=== PATIENT | male | born 1930 | race Caucasian/White ===

== ENCOUNTER 2017-01-15 07:28 | Outpatient (CLI) | payer MEDICARE, BC ==
[~2017-01-15] VITALS: Ht 177.8 cm; Wt 66.4 kg
--- NOTE | ~2017-01-15 | HEMODYNAMI ---
PATIENT:VERO ECHOLS MEDICAL RECORD: [id number] : 34 LOCATION:[facility] ADMISSION DATE: 01/15/17 Generatedon:01/15/201710:37 Patient name: VERO ECHOLS Patient #: [id number] SSN : : 1930 Date of study: 01/15/2017 Page: Of Hemodynamic Procedure Report Patient Data Patient Demographics Procedure consent was obtained First Name: VERO Gender: Male Last Name: KINZA : 1930 [facility] Initial: L Age: 86 year(s) Patient #: [id number] Race: Additional ID: [id number] Contact details Address: [address] [place] [address] State: [place] City: [facility] Zip code: [address] Past Medical History Allergies Allergen Reaction Date Comments Reported Other allergy 01/15/2017 Iodine, IV contrast Admission Admission Data Admission Date: 01/15/2017 Admission Time: 7:28 Admit Source: Other Height (in.): 70 BSA: 1.83 (m2) Height (cm.): 177.8 BMI: 20.95 (kg/m2) Weight (lbs.): 146 Weight (kg.): 66.22 Lab Results Lab Result Date: 01/15/2017 Lab Result Time: 8:00 Biochemistry Name Units Result Min Max BUN mg/dl 25 --(----)-* 7 18 Creatinine mg/dl 1.1 --(--*-)-- 0.6 1.3 CBC Name Units Result Min Max Hematocrit % 38.7 *-(----)-- 42 54 Hemoglobin g/dl 13.2 -*(----)-- 13.5 17.5 Procedure Procedure Types Cath Procedure Miscellaneous Procedures Moderate Sedation up to 30 minutes Peripheral Cath Diagnostic Procedure Cath Peripheral Xinpe-Ukxeiiu-Rig-Off Peripheral vascular Intervention Stent Stent-Fem/Popw/plasty Procedure Description Procedure Date Procedure Date: 01/15/2017 Procedure Start Time: 10:18 Procedure Staff Name Function Isael Santiago MD Performing Physician Debbie Edmond RT Scrub Amandeep Herman RN Nurse Oliver Justin RT Monitor Procedure Data Cath Procedure Fluoroscopy Diagnostic fluoroscopy Total fluoroscopy Time: 4 time: 4 min min Diagnostic fluoroscopy Total fluoroscopy dose: 71 dose: 71 mGy mGy Contrast Material Contrast Material Type Amount (ml) Isovue 300 82 Entry Location Entry Primary Successful Side Size Upsize 1 Upsize Entry Closure Tabor ccessful Closure Location (Fr) (Fr) 2 (Fr) Remarks Device Remarks Femoral Left 5 Fr 6 Fr 6 Fr Exoseal artery Mid-Length Short Estimated blood loss: 10 ml Diagnostic catheters Device Type Used For End Catheter Placement Cordis Tempo 5Fr UF Procedure catheter Procedure Complications No complications Procedure Medications Medication Administration Route Dosage Oxygen NC 2 l/min Heparin Flush Bag added to field 2 bags (1000units/500ml NS) 0.9% NaCl I.V. 100 ml/hr Fentanyl I.V. 50 mcg Versed I.V. 1 mg Fentanyl I.V. 50 mcg Versed I.V. 1 mg Heparin Bolus I.V. 4000 units Plavix P.O. 600 mg Hemodynamics Rest BSA: 1.83 (m2) HGB: 13.2 (g/dl) O2 Consumption: Estimated: 225.1 (ml/min) O2 Con sumption indexed: Estimated:123.01 (ml/min/m) Heart Rate: 95 (bpm) Snapshots Pre Cath Intra NCS Post Cath Vital Signs Time Heart Resp SPO2 etCO2 DN4blja NIBP (mmHg) Rhythm Pain Sedatio n Rate (ipm) (%) (mmHg) (mmHg) Status Level (bpm) 9:55:23 96 20 97 0 0 170/100(140) NSR 0 (11) 10(A) , No pain 9:59:41 96 19 96 0 0 170/96(132) NSR 0 (11) 10(A) , No pain 10:03:57 97 20 96 0 0 171/98(136) NSR 0 (11) 10(A) , No pain 10:08:11 94 17 98 0 0 162/92(123) NSR 0 (11) 10(A) , No pain 10:12:27 95 19 98 0 0 159/92(125) NSR 0 (11) 10(A) , No pain 10:16:44 94 18 99 0 0 150/80(113) NSR 0 (11) 9(A) , No pain 10:21:01 97 16 98 0 0 144/76(105) NSR 0 (11) 9(A) , No pain 10:25:15 96 17 98 0 0 136/73(105) NSR 0 (11) 9(A) , No pain 10:29:26 96 18 98 0 0 132/73(99) NSR 0 (11) 9(A) , No pain 10:33:36 97 9 98 0 0 135/76(106) NSR 0 (11) 9(A) , No pain Medications Time Medication Route Dose Verified Delivered Reason Notes Effectiveness by by 9:59:27 Oxygen NC 2 Amandeep Amandeep Per physician l/min Virgil Herman RN RN 9:59:38 Heparin Flush added 2 Amandeep Amandeep used for Bag to bags Virgil Herman RN procedure (1000units/500ml field RN NS) 9:59:48 0.9% NaCl I.V. 100 Amandeep Amandeep Per physician ml/hr Virgil Herman RN RN 10:14:30 Fentanyl I.V. 50 Amandeep Amandeep for sedation mcg Virgil Herman RN RN 10:14:37 Versed I.V. 1 mg Amandeep Amandeep for sedation Virgil Herman RN RN 10:17:32 Fentanyl I.V. 50 Amandeep Amandeep for sedation mcg Virgil Herman RN RN 10:17:38 Versed I.V. 1 mg Amandeep Amandeep for sedation Virgil Herman RN RN 10:21:31 Heparin Bolus I.V. 4000 Amandeep Amandeep for units Virgil Herman RN anticoagulation RN 10:31:37 Plavix P.O. 600 Amandeep Bernstein for mg Virgil Herman RN antiplatelet RN therapy Procedure Log Time Note 9:01:01 Admit Source: Other 9:02:14 Lab Result : Creatinine 1.1 mg/dl 9:02:14 Lab Result : Hemoglobin 13.2 g/dl 9:02:14 Lab Result : BUN 25 mg/dl 9:02:14 Lab Result : Hematocrit 38.7 % 9:30:55 Amandeep Herman RN sent for patient. Start room use. 9:39:15 Time tracking: Regular hours 9:39:19 Plan of Care:Hemodynamics will remain stable., Cardiac rhythm will remain stable., Comfort level will be maintained., Respiratory function will remain adequate., Patient/ family verbilizes understanding of procedure., Procedure tolerated without complication., Recovers from procedure without complications.. 9:43:05 Patient received from Pre/Post Procedure Room to CCL 1 Alert and oriented. Tansferred to table in Supine position. 9:43:07 Warm blankets applied, and kaushik hugger turned on for patient comfort. 9:43:07 Correct patient and procedure confirmed by team. 9:43:08 Signed procedure consent form obtained from patient. 9:43:09 ECG and BP/O2 sat monitors applied to patient. 9:43:10 Full Disclosure recording started 9:54:17 Vital chart was started 9:54:22 Rhythm: sinus rhythm 9:59:27 Oxygen 2 l/min NC was administered by Amandeep Herman RN; Per physician; 9:59:38 Heparin Flush Bag (1000units/500ml NS) 2 bags added to field was administered by Amandeep Herman RN; used for procedure; 9:59:48 0.9% NaCl 100 ml/hr I.V. was administered by Amandeep Herman RN; Per physician; 10:05:30 H&P Date Dictated: 12/24/2016 Within 30 days and on chart., H&P Addendum completed by physician on day of procedure. (MUST COMPLETE FOR ALL OUTPATIENTS). 10:05:31 Pre-procedure instructions explained to patient. 10:05:31 Pre-op teaching completed and patient verbalized understanding. 10:05:32 Family in waiting room. 10:05:33 Patient NPO since Midnight. 10:05:49 Patient allergic to Other allergyIodine, IV contrast 10:05:51 Is the patient allergic to Iodine/contrast media? Yes. 10:05:52 Was the patient premedicated? Yes 10:05:53 Is patient on blood thinner?No 10:05:54 Patient diabetic? Yes. 10:05:56 If diabetic: On Metformin? Yes 10:06:02 If on Metformin: Last Dose? 01/14/2017 10:06:07 Previous problem with sedation/anesthesia? No ? 10:06:08 Snore? Yes 10:06:10 Sleep apnea? No 10:06:11 Deviated septum? No 10:06:12 Opens mouth fully? Yes 10:06:12 Sticks out tongue? Yes 10:06:14 Airway obstruction? No ? 10:06:20 Dentures? Yes out 10:06:23 Pre procedure: right dorsailis pedis pulse 2+ Normal; easily identifiable; not easily obliterated 10:06:26 Pre procedure: left dorsailis pedis pulse 1+ Palpable, but thready & weak; easily obliterated 10:06:30 Patient pain scale 0/10 ?. 10:06:36 IV patent on arrival in left forearm with 0.9% NaCl at [facility]. 10:06:38 Lab results completed and on chart. 10:06:40 Bilateral groins area was prepped with chlora-prep and draped in sterile fashion 10:06:41 Alarms reviewed by R. N. 10:06:41 Sharps counted by scrub and verified by R.N. 10:06:45 Tegaderm 4 x 4 opened to sterile field. 10:06:46 Acist Manifold opened to sterile field. 10:06:47 Acist Hand Control opened to sterile field. 10:06:48 Acist Syringe opened to sterile field. 10:06:48 Bag Decanter opened to sterile field. 10:06:49 Medline Cath Pack opened to sterile field. 10:06:49 Terumo 5Fr [place] Sheath opened to sterile field. 10:06:50 St Dez 260cm J .035 wire opened to sterile field. 10:07:17 Patient Height : 70 cm 10:07:22 Patient Weight : 146 kg 10:08:11 Baseline sample Acquired. 10:08:18 Rhythm: sinus rhythm 10:12:13 Physician arrived 10:12:14 --------ALL STOP TIME OUT------ 10:12:14 Final Timeout: patient, procedure, and site verified with staff and physician. All members of the team are in agreement. 10:12:16 Bilateral groins site verified by team. 10:12:18 Physical assessment completed. ASA score P 2 - A patient with mild systemic disease as per Isael Santiago MD. 10:12:21 Sedation plan: IV Moderate Sedation Versed, Fentanyl 10:12:53 Zero performed for pressure channel P1 10:14:30 Fentanyl 50 mcg I.V. was administered by Amandeep Herman RN; for sedation; 10:14:37 Versed 1 mg I.V. was administered by Amandeep Herman RN; for sedation; 10:17:32 Fentanyl 50 mcg I.V. was administered by Amandeep Herman RN; for sedation; 10:17:38 Versed 1 mg I.V. was administered by Amandeep Herman RN; for sedation; 10:17:55 Procedure started. 10:18:01 Local anesthetic to left femerol artery with Lidocaine 2% by Isael Santiago MD.INITIAL ACCESS ONLY 10:18:09 A 5 Fr sheath was inserted into the Left Femoral artery 10:18:53 A RadLogics Tempo 5Fr UF catheter was advanced over the wire and used for Procedure. 10:18:55 Abdominal angiogram w/ runoff was performed. 10:21:04 Left leg runoff performed. 10:21:10 Right leg runoff performed. 10:21:31 Heparin Bolus 4000 units I.V. was administered by Amandeep Herman RN; for anticoagulation; 10:22:07 Terumo 6Fr [place] Destination Sheath opened to sterile field. 10:22:08 Cook ROADRUNNER FIRM 260CM glide wire opened to sterile field. 10:22:08 Terumo 6Fr [place] Sheath opened to sterile field. 10:22:14 Merit BasixCompak Inflation Kit opened to sterile field. 10:22:36 glide wire advanced. 10:22:46 glide wire advanced around the horn 10:22:56 Catheter removed. 10:23:05 Sheath upsized to a 6 Fr Mid-Length. 10:23:20 long sheath advanced around the horn. 10:23:51 Terumo TORQUE DEVICE PLASTIC .038 opened to sterile field. 10:24:19 Wire removed. 10:24:26 Ripon Sci Choice PT Extra Support J 300cm .014 gu opened to sterile field. 10:24:35 choice PT wire advanced. 10:24:37 Wire advanced across lesion. 10:26:32 Inflation number: 1 A Cordis Powerflex Pro 6.0 X 20 X 135 balloon was prepped and advanced across the Mid Popliteal, Right, then inflated to 5 MARILIA for 0:10 (min:sec). 10:26:35 Balloon removed over the wire. 10:27:58 Cordis SMART 6 X 20 X 120 stent was deployed across Mid Popliteal, Right . 10:28:21 Stent catheter was removed intact over wire. 10:28:22 Wire removed. 10::49 Sheath upsized to a 6 Fr Short. 10:28:56 Cordis 6Fr Exoseal opened to sterile field. 10:29:03 Sheath removed intact; hemostasis achieved with Exoseal to the Left Femoral artery. 10:29:26 Procedure ended.(Physican Out) 10:31:37 Plavix 600 mg P.O. was administered by Amandeep Herman RN; for antiplatelet therapy; 10:32:51 Fluoroscopy time 04.00 minutes. 10:33:00 Fluoroscopy dose: 71 mGy 10:33:00 Flurop Dose total: 71 10:33:10 Contrast amount:Isovue 300 82ml. 10:33:11 Sharps counted by scrub and verified by R.N. 10:33:16 Insertion/operative site no bleeding no hematoma. 10:33:21 Post-op/insertion site Left Femoral artery dressed using a 4 x 4 and Tegaderm. 10:33:26 Post left femerol artery:stable, soft, clean and dry 10:33:29 Post Procedure Pulses reassessed and unchanged 10:33:32 Post-procedure physical assessment completed. ASA score P 2 - A patient with mild systemic disease as per Isael Santiago MD. 10:33:35 Post procedure rhythm: unchanged. 10:33:38 Estimated blood loss: 10 ml 10:33:40 Post procedure instruction explained to patient.Patient verbalizes understanding. 10:33:40 Patient needs reinforcement of post procedure teaching. 10:33:41 Procedure and supply charges have been captured, reviewed, submitted and are correct. 10:34:37 Procedure type changed to Cath procedure, Miscellaneous Procedures, Moderate Sedation up to 30 minutes, Peripheral Cath Diagnostic Procedure, Cath Peripheral, Edicd-Dczytqj-Fcf-Off, Peripheral vascular Intervention, Stent, Stent-Fem/Popw/plasty 10:34:39 Procedure Complication : No complications 10:34:43 Vital chart was stopped 10:34:47 Report given to Pre/Post Procedure Room. 10:34:49 Patient transfered to Pre/Post Procedure Room with Stretcher. 10:35:43 End room use (Document Last) Intervention Summary Intervention Notes Time ActionType Lesion and Equipment Action# Pressure Duration Attributes Used 10::32 Inflate Mid Cordis 1 5 00:10 balloon Popliteal, Powerflex Right Pro 6.0 X 20 X 135 balloon 10:27:58 Deploy self Mid Cordis 1 expanding Popliteal, SMART 6 X stent Right 20 X 120 stent Device Usage Item Name Manufacture Quantity Catalog Number Hospital Part Current Minim al Lot# / Charge Number Stock Stock Serial# Code Tegaderm 4 3M 1 [id number] 036011 [id number] 5 x 4 Acist Acist 1 14792 952571 946803 464361 5 Manifold Medical Systems Inc Acist Hand Acist 1 53791 781574 707346 828620 5 Control Medical Systems Inc Acist Acist 1 08384 635817 587692 266063 20 Syringe Medical Systems Inc Bag Microtek 1 2002S 596994 24463 270679 5 3FLOZ. Medline Cardinal 1 [id number] 422485 39467 702720 5 Cath Pack Health Terumo 5Fr Terumo 1 IVR280 130258 643310 143376 [address] Dez 1 120517 078648 577429 836656 30 260cm J .035 wire Cordis Cardinal 1 [id number] 193518 277346 174499 10 Tempo 5Fr Health UF catheter Terumo 6Fr Terumo 1 RSR01 191705 06976 582627 5 [place] Destination Sheath [facility] 1 C07165 530599 517334 5 ROADRUNNER FIRM 260CM glide wire Terumo 6Fr Terumo 1 CPC722 069148 238869 814863 40 [place] Sheath Merit Merit 1 WV0082 357863 119827 590168 15 BasixCompak Medical Inflation Kit Terumo Ripon 1 TD01 384428 949658 459188 5 TORQUE Scientific DEVICE PLASTIC .038 Ripon Sci Ripon 1 [id number] 993921 070417 775312 5 Choice PT Scientific Extra Support J 300cm .014 gu Cordis Cardinal 1 [id number] 045932 065665 077304 5 Powerflex Health Pro 6.0 X 20 X 135 balloon Cordis Cardinal 1 [id number] 712512 478605 0 SMART 6 X Health 20 X 120 stent Cordis 6Fr Cardinal 1 EX600 946760 208713 564872 10 [facility] Signature Audit Ida Stage Time Signature Unsigned Intra-Procedure 01/15/2017 Oliver Justin 10:37:16 AM RT(R) Signatures Monitor : Oliver Justin RT Signature : Date : Time : [place] [id number] [facility] [place] [address]
[2017-01-15] MEDS ORDERED: GEMFIBROZIL600 MG PO (07:47)
[2017-01-15] MEDS ORDERED: PROPAFENONE HC150 MG PO (07:47)
[2017-01-15] MEDS ORDERED: ZOCOR40 MG PO (07:48)
[2017-01-15] MEDS ORDERED: PREVACID30 MG PO (07:48)
[2017-01-15] MEDS ORDERED: GLUCOPHAGE500 MG PO (07:49)
[2017-01-15] MEDS ORDERED: CARDIZEM CD120 MG PO (07:50)
[2017-01-15] MEDS ORDERED: PINDOLOL10 MG PO (07:51)
[2017-01-15] MEDS ORDERED: ZOFRAN4 MG PO (07:52)
[2017-01-15] MEDS ORDERED: NITROSTAT0.4 MG SL (07:53)
[2017-01-15 08:02] VITALS: BP 173/79; Ht 177.8 cm; Wt 66.4 kg
[2017-01-15 08:11] LABS: BASOPHILS 0.7 % (0-2); EOSINOPHILS 0 % (0-7); HEMATOCRIT 38.7 % (42.0-54.0); HEMOGLOBIN 13.2 g/dL (13.5-17.5); IMMATURE GRANULOCYTES 9.9 % (0-5); LYMPHOCYTES 32.2 % (15-50); MCHC 34.1 g/dL (31.0-37.0); MEAN PLATELET VOLUME 10.7 fL (7.4-10.4); MONOCYTES 7.9 % (2-11); NEUTROPHILS 49.3 % (40-80); RDW 13.3 % (11.5-14.5)
[2017-01-15 08:15] LABS: PLATELET COUNT 215 10x3/uL (130-400)
[2017-01-15 08:19] LABS: WBC 1.5 10x3/uL (4.8-10.8)
[2017-01-15 08:25] LABS: CALCIUM 9.6 mg/dL (8.5-10.1); CARBON DIOXIDE 25.8 mmol/L (21.0-32.0); CREATININE - SERUM 1.1 mg/dL (0.6-1.3); POTASSIUM - SERUM 4.8 mmol/L (3.5-5.1)
[2017-01-15] MEDS ORDERED: BAYER CHEWABLE81 MG PO (10:55)
[2017-01-15] MEDS ORDERED: PLAVIX75 MG PO (10:55)
--- NOTE | 2017-01-17 16:36 | OP ---
PATIENT NAME: VERO ECHOLS MEDICAL RECORD: [id number] :34 LOCATION:D.CAT ADMISSION DATE: SURGEON: EVELYN PAINTER MD DATE OF OPERATION: 01/15/2017 PROCEDURES: 1. Stent placement, popliteal right. 2. SUPERVISOR MAINTENANCE AND CUSTODIANS, popliteal right. 3. Aortofemoral runoff. 4. Abdominal aortography. INDICATIONS: Claudication and peripheral vascular disease. PROCEDURE IN DETAIL: After informed consent was obtained and after a detailed explanation of risks, benefits as well as alternative therapies, the patient elected to proceed with angiogram and angioplasty. The left femoral area was prepped and draped in normal sterile fashion. The left femoral artery was cannulated via modified Seldinger technique with placement of 6-Wolof bauwma-qkp-tvqt sheath. All catheters exchanged through this sheath. FINDINGS: The abdominal aortography was performed. The catheter was pulled down for aortofemoral runoff. Abdominal aortography reveals no significant abdominal aortic disease. There is 80% renal artery stenosis on the left. No significant renal artery stenosis on the right. LEFT LEG: A. Iliac: The common internal and external iliacs have mild irregularities, but no flow-limiting stenosis. B. Femoral system: The common and deep femoral are widely patent. Superficial femoral has area of 90% stenosis in the distal aspect, otherwise only mild irregularities. C. Popliteal and infrapopliteal vessels are patent giving 3-vessel runoff to the foot, although diffusely diseased. RIGHT LEG: A. Iliac: The common internal and external iliacs have mild irregularities, but no flow-limiting stenosis. B. Femoral system: The common superficial and deep femoral have ldsb-zp-xyduhzah irregularities, but no flow-limiting stenosis. C. Popliteal and infrapopliteal vessels. The popliteal vessel has an 80+ percent stenosis in the mid distal aspect of this. Otherwise, there is 3-vessel runoff to the foot, although mildly diffusely diseased. SUPERVISOR MAINTENANCE AND CUSTODIANS STENT OF THE RIGHT POPLITEAL: Balloon used was 6 x 20 balloon, which yielded a suboptimal result with severe intimal dissection. Stenting was undertaken with a 6 x 20 Smart stent. Result was 0% residual stenosis. OVERALL IMPRESSION: Successful SUPERVISOR MAINTENA[employer]CE AND CUSTODIANS stent of the right popliteal going from 80% initial stenosis to 0% residual. PLAN: For SUPERVISOR MAINTENANCE AND CUSTODIANS stent of the left SFA in the near future. TRANSINT:[id number] Voice Confirmation ID: [id number] DOCUMENT ID: [id number] OPERATIVE REPORT [id number] VERO ECHOLS JEFFREY MD at 1636 CC: [id number] DICTATION DATE: 01/15/17 1034 BIN CLEANER: 01/15/17 [facility] DEP CLI 01/15/17 [place] [id number]
== END 2017-01-15 14:40 | disposition home or self-care (01) ==
LOC: D.CATH 07:28
PROVIDERS: Internal Medicine Interventional Cardiology
DX: I25.10 Atherosclerotic heart disease of native coronary artery without angina pectoris (principal); I70.213 Atherosclerosis of native arteries of extremities with intermittent claudication, bilateral legs; I48.0 Paroxysmal atrial fibrillation; I10 Essential (primary) hypertension; Z01.812 Encounter for preprocedural laboratory examination

== ENCOUNTER 2017-01-20 07:26 | Outpatient (CLI) | payer MEDICARE, BC ==
[~2017-01-20] VITALS: Ht 177.8 cm; Wt 66.4 kg
--- NOTE | ~2017-01-20 | HP ---
PATIENT: VERO ECHOLS MEDICAL RECORD: [id number] ACCOUNT: [id number] LOCATION:[facility] : 34 ADMISSION DATE: 01/20/17 HISTORY AND PHYSICAL EXAMINATION ADMITTING DIAGNOSES: 1. Claudication. 2. Peripheral vascular disease. 3. Recent percutaneous transluminal angioplasty stent, right popliteal with concomitant disease of the left superficial femoral artery. 4. Coronary artery disease. 5. Hypertension. 6. Hyperlipidemia. HISTORY OF PRESENT ILLNESS: Mr. Echols presents with claudication bilaterally, found to have bilateral significant disease, underwent SCHOOL GUARD stent of his popliteal right and is now admitted for left leg SFA transcatheter revascularization. PHYSICAL EXAMINATION: GENERAL APPEARANCE: Well-nourished, well-developed, appears stated age. Level of distress, comfortable. PSYCHIATRIC: Mental status, alert, normal affect. Orientation, oriented to time, place and person. EYES: Lids and conjunctiva, noninjected. No discharge, no pallor. ENT: Lips, teeth, gums, normal dentition. Oropharynx, no cyanosis, no pallor. NECK: Carotid arteries, bilateral normal upstroke, no bruits, no thrills. JUGULAR VEINS: No jugular venous pressure or distention. CERVICAL LYMPH NODES: Nontender, nonenlarged. THYROID: Not enlarged. Nontender. No nodules. LUNGS: Respiratory effort, unlabored. CHEST: Normal curvature. No thoracic deformity. No chest wall tenderness. Percussion, resonant. Auscultation, clear. No wheezes, no rales, no rhonchi. CARDIOVASCULAR: Precordial exam, nondisplaced. No heaves or pericardial thrills. Rate and rhythm, regular. Heart sounds, normal S1, normal S2. No S3, no gallop, no rub. Systolic murmur, not heard. Diastolic murmur, not heard. EXTREMITIES: No cyanosis, no edema. Peripheral pulses, full and equal in all extremities, except as noted. No bruits appreciated. ABDOMEN: Soft, nondistended. Normal aorta. No bruit. Nontender. No masses. Liver, nontender, no hepatomegaly. Spleen, nontender, no splenomegaly. MUSCULOSKELETAL: No joint tenderness. No joint swelling. No erythema. NEUROLOGICAL: Normal gait, normal strength, normal tone. SKIN: Warm and dry. REVIEW OF SYSTEMS: The patient reports easy bruising but reports no swollen glands. The patient reports no fever, no night sweats, no significant weight gain, no significant weight loss. No significant exercise tolerance. The patient reports no dry eyes, no irritation, no vision change. Patient reports no difficulty hearing and no ear pain. Patient reports no frequent nose bleeds or nose and sinus problems. Patient reports on arm pain on exertion. No shortness of breath while lying down. No history of heart murmur. Patient reports no cough, no wheezing or coughing up blood. Patient reports no abdominal pain, no vomiting. Normal appetite. No diarrhea and not vomiting blood. No nausea and no constipation. Patient reports no incontinence. No difficulty urinating. No hematuria. No increased frequency. Patient reports HISTORY AND PHYSICAL [id number] VERO ECHOLS no muscle aches. No weakness, no arthralgias, no back pain. No swelling of the extremities. Patient reports no abnormal mole, no jaundice, no rashes. Reports no loss of consciousness. No weakness and no numbness. No seizures, dizziness, or headaches. The patient reports no depression, no sleep disturbance, feeling safe in a relationship and no alcohol abuse. Patient reports on fatigue. Reports no runny nose or sinus pressure. No itching, no hives, and no frequent sneezing. OVERALL IMPRESSION: Claudication, left leg; disease of the superficial femoral artery. He is amenable to transcatheter revascularization. We will proceed with transcatheter revascularization of the left superficial femoral artery. TRANSINT:[id number] Voice Confirmation ID: [id number] DOCUMENT ID: [id number] EVELYN PAINTER MD CC: [id number] DICTATION DATE: 01/20/17 1040 SOLID WASTE ENGINEER: 01/20/17 1105 [facility] [address] [place] [address]
--- NOTE | ~2017-01-20 | OP ---
PATIENT NAME: VERO ECHOLS MEDICAL RECORD: [id number] :34 LOCATION:D.CAT ADMISSION DATE: SURGEON: EVELYN PAINTER MD DATE OF OPERATION: 01/20/2017 PROCEDURES: 1. Stent placement SFA, left. 2. BANKING REPRESENTATIVE SFA, left. 3. Unilateral extremity angiography. INDICATIONS: Claudication and peripheral vascular disease. PROCEDURE IN DETAIL: After informed consent was obtained and after a detailed explanation of the risks, benefits as well as alternative therapies, the patient elected to proceed with angiogram and angioplasty. The right femoral area was prepped and draped in normal sterile fashion. The right femoral artery was cannulated via modified Seldinger technique with placement of 6-Portuguese fzcyex-joe-glky sheath. All catheters exchanged through this sheath. FINDINGS: The left SFA has multiple areas of greater than 80% stenosis. This was addressed with a 6.0 balloon yielding suboptimal results with severe intimal dissection. Stenting was undertaken with 6 x 80 and 6 x 60 SMART stents. Result was 0% residual stenosis. OVERALL IMPRESSION: Successful percutaneous transluminal angioplasty stent of the left superficial femoral artery going from greater than 80% initial stenosis to 0% residual. TRANSINT:[id number] Voice Confirmation ID: [id number] DOCUMENT ID: [id number] EVELYN PAINTER MD CC: [id number] DICTATION DATE: 01/20/17 1041 RETAIL SEASONAL SPECIALIST: 01/20/17 1138 [facility] [address] [place] [id number]
--- NOTE | ~2017-01-20 | HEMODYNAMI ---
PATIENT:VERO ECHOLS MEDICAL RECORD: [id number] : 34 LOCATION:[facility] ADMISSION DATE: 01/20/17 Generatedon:01/20/201710:40 Patient name: VERO ECHOLS Patient #: [id number] SSN : [id number] : 1930 Date of study: 01/20/2017 Page: Of Hemodynamic Procedure Report Patient Data Patient Demographics Procedure consent was obtained First Name: VERO Gender: Male Last Name: KINZA : 1930 [facility] Initial: L Age: 86 year(s) Patient #: [id number] Race: SSN: [id number] Additional ID: [id number] Contact details Address: [address] [place] [address] State: [place] City: [facility] Zip code: [address] Past Medical History Allergies Allergen Reaction Date Comments Reported Other allergy 01/15/2017 Iodine, IV contrast Other allergy 01/20/2017 Iodine Admission Admission Data Admission Date: 01/20/2017 Admission Time: 7:26 Lab Results Lab Result Date: 01/15/2017 Lab Result Time: 8:00 Biochemistry Name Units Result Min Max BUN mg/dl 25 --(----)-* 7 18 Creatinine mg/dl 1.1 --(--*-)-- 0.6 1.3 CBC Name Units Result Min Max Hematocrit % 38.7 *-(----)-- 42 54 Hemoglobin g/dl 13.2 -*(----)-- 13.5 17.5 Procedure Procedure Types Cath Procedure Miscellaneous Procedures Moderate Sedation up to 15 minutes Peripheral vascular Intervention Stent Stent-Fem/Popw/plasty Procedure Description Procedure Date Procedure Date: 01/20/2017 Procedure Start Time: 10:10 Procedure End Time: 10:37 Procedure Staff Name Function Isael Santiago MD Performing Physician Samia Day RT Scrub William Yeboah RN Nurse Eileen Corona RT Monitor Procedure Data Cath Procedure Fluoroscopy Diagnostic fluoroscopy Total fluoroscopy Time: 7.7 time: 7.7 min min Diagnostic fluoroscopy Total fluoroscopy dose: 34 dose: 34 mGy mGy Contrast Material Contrast Material Type Amount (ml) Isovue 300 66 Entry Location Entry Primary Successful Side Size Upsize Upsize Entry Closure Succes sful Closure Location (Fr) 1 (Fr) 2 (Fr) Remarks Device Remarks Femoral Right 6 Fr 6 Fr Exoseal artery Short Long Estimated blood loss: 10 ml Diagnostic catheters Device Type Used For End Catheter Placement Cordis Tempo 5Fr UF Procedure catheter Procedure Complications No complications Procedure Medications Medication Administration Route Dosage Oxygen NC 2 l/min Lidocaine 2% added to field 20 Heparin Flush Bag added to field 2 bags (1000units/500ml NS) 0.9% NaCl I.V. 100 ml/hr Versed I.V. 1 mg Fentanyl I.V. 50 mcg Versed I.V. 1 mg Fentanyl I.V. 50 mcg Heparin Bolus I.V. 4000 units Fentanyl I.V. 50 mcg Hemodynamics Rest HGB: 13.2 (g/dl) Heart Rate: 66 (bpm) Snapshots Pre Cath Intra NCS Post Cath Vital Signs Time Heart Resp SPO2 etCO2 FO7kvvp NIBP (mmHg) Rhythm Pain Sedation Rate (ipm) (%) (mmHg) (mmHg) Status Level (bpm) 9:52:32 75 18 100 0 0 151/72(112) NSR 0 (11) 10(A) , No pain 9:56:56 72 18 100 0 0 132/64(107) NSR 0 (11) 10(A) , No pain 10:01:15 72 17 100 0 0 130/57(99) NSR 0 (11) 10(A) , No pain 10:05:31 72 15 100 0 0 120/60(103) NSR 0 (11) 10(A) , No pain 10:09:44 74 16 99 0 0 118/55(89) NSR 0 (11) 10(A) , No pain 10:13:59 73 16 99 0 0 119/54(98) NSR 0 (11) 9(A) , No pain 10:18:14 73 17 99 0 0 112/52(87) NSR 0 (11) 9(A) , No pain 10:22:26 74 16 99 0 0 101/51(84) NSR 0 (11) 9(A) , No pain 10:26:36 75 16 99 0 0 108/48(79) NSR 0 (11) 9(A) , No pain 10:30:46 75 16 99 0 0 108/54(79) NSR 0 (11) 9(A) , No pain 10:34:56 76 17 99 0 0 108/52(91) NSR 0 (11) 10(A) , No pain Medications Time Medication Route Dose Verified Delivered Reason Notes Effectiveness by by 9:54:08 Oxygen NC 2 Isael Buffie used for l/min Pamela Yeboah RN procedure 9:54:16 Lidocaine 2% added 20ml Isael Isael for local to vial Pamela Santiago MD anesthetic field 9:54:23 Heparin Flush added 2 Isael Isael used for Bag to bags Pamela Santiago MD procedure (1000units/500ml field NS) 9:54:32 0.9% NaCl I.V. 100 Isaeljessica Thomas Per physician ml/hr Pamela Yeboah RN 10:09:43 Versed I.V. 1 mg Isael Thomas for sedation Pamela Yeboah RN 10:09:52 Fentanyl I.V. 50 Isael Thomas for sedation mcg Pamela Yeboah RN 10:13:24 Versed I.V. 1 mg Isaeljessica Bowenie for sedation Pamela Yeboah RN 10:13:28 Fentanyl I.V. 50 Isael Thomas for sedation mcg Pamela Yeboah RN 10:16:24 Heparin Bolus I.V. 4000 Isaeljessica Thomas for verifi ed units Pamela Yeboah RN anticoagulation with dr santiago 10:21:31 Fentanyl I.V. 50 Isael Thomas for sedation mcg Pamela Yeboah RN Procedure Log Time Note 9:21:01 William Yeboah RN sent for patient. Start room use. 9:40:38 Informed consent obtained and on chart 9:40:43 Diagnostic Cath Status : Elective 9:41:07 Time tracking: Regular hours 9:41:12 Plan of Care:Hemodynamics will remain stable., Cardiac rhythm will remain stable., Comfort level will be maintained., Respiratory function will remain adequate., Patient/ family verbilizes understanding of procedure., Procedure tolerated without complication., Recovers from procedure without complications.. 9:41:26 Patient received from Pre/Post Procedure Room to [facility] 1 Alert and oriented. Candieferred to table in Supine position. 9:41:27 Warm blankets applied, and kaushik hugger turned on for patient comfort. 9:41:28 Correct patient and procedure confirmed by team. 9:41:29 ECG and BP/O2 sat monitors applied to patient. 9:51:14 Vital chart was started 9:51:19 Baseline sample Acquired. 9:51:32 Rhythm: sinus rhythm 9:51:34 Full Disclosure recording started 9:53:38 H&P Date Dictated: 01/18/2017 Within 30 days and on chart.. 9:54:00 Pre-procedure instructions explained to patient. 9:54:04 Family in waiting room. 9:54:07 Patient NPO since Midnight. 9:54:08 Oxygen 2 l/min NC was administered by William Yeboah RN; used for procedure; 9:54:16 Lidocaine 2% 20ml vial added to field was administered by Isael Santiago MD; for local anesthetic; 9:54:23 Heparin Flush Bag (1000units/500ml NS) 2 bags added to field was administered by Isael Santiago MD; used for procedure; 9:54:29 Patient allergic to Other allergyIodine 9:54:32 0.9% NaCl 100 ml/hr I.V. was administered by William Yeboah RN; Per physician; 9:54:36 Is the patient allergic to Iodine/contrast media? Yes. 9:54:38 Was the patient premedicated? Yes 9:54:43 Is patient on blood thinner?Yes 9:54:46 ACC The patient was administered the following blood thiners within the last 24 hours: ACCPlavix 9:54:53 Patient diabetic? Yes. 9:54:58 If diabetic: On Metformin? Yes 9:55:01 If on Metformin: Last Dose? 01/18/2017 9:55:16 Snore? Yes 9:55:42 Dentures? No ? 9:55:47 Patient pain scale 0/10 ?. 9:55:55 IV patent on arrival in right hand with 0.9% NaCl at KVO. 9:56:06 Lab results completed and on chart. 9:56:12 Bilateral groins area was prepped with chlora-prep and draped in sterile fashion 9:56:14 Alarms reviewed by R. N. 9:56:15 Sharps counted by scrub and verified by R.N. 9:56:17 Physician paged 9:59:40 Zero performed for pressure channel P1 10:01:03 Use device set Femoral PCI 10:01:05 Acist Syringe opened to sterile field. 10:01:06 Acist Hand Control opened to sterile field. 10:01:07 Bag Decanter opened to sterile field. 10:01:08 Medline Cath Pack opened to sterile field. 10:01:15 St Dez 260cm J .035 wire opened to sterile field. 10:01:16 Merit BasixCompak Inflation Kit opened to sterile field. 10:01:17 Acist Manifold opened to sterile field. 10:01:21 Tegaderm 4 x 4 opened to sterile field. 10:01:31 Terumo 6Fr [place] Sheath opened to sterile field. 10:01:46 Baseline sample Acquired. 10:08:38 Physician arrived 10:08:39 --------ALL STOP TIME OUT------ 10:08:39 Final Timeout: patient, procedure, and site verified with staff and physician. All members of the team are in agreement. 10:08:42 Bilateral groins site verified by team. 10:08:47 Physical assessment completed. ASA score P 3 - A patient with severe systemic disease as per Isael Santiago MD. 10:08:51 Sedation plan: IV Moderate Sedation Versed, Fentanyl 10:09:43 Versed 1 mg I.V. was administered by William Yeboah RN; for sedation; 10:09:52 Fentanyl 50 mcg I.V. was administered by William Yeboah RN; for sedation; 10:10:09 Procedure started. 10:10:18 Local anesthetic to right femoral artery with Lidocaine 2% by Isael Santiago MD.INITIAL ACCESS ONLY 10:10:42 A 6 Fr Short sheath was inserted into the Right Femoral artery 10:13:24 Versed 1 mg I.V. was administered by William Yeboah RN; for sedation; 10:13:28 Fentanyl 50 mcg I.V. was administered by William Yeboah RN; for sedation; 10:13:55 Terumo ANGLE 260cm glide wire opened to sterile field. 10:13:56 Terumo 6Fr [place] Destination Sheath opened to sterile field. 10:14:01 Terumo TORQUE DEVICE PLASTIC .038 opened to sterile field. 10:14:59 A Cordis Tempo 5Fr UF catheter was advanced over the wire and used for Procedure. 10:15:04 Catheter removed. 10:15:19 Sheath upsized to a 6 Fr Long. 10:15:31 Angiography was performed. 10:16:02 [place] Sci Choice PT Extra Support J 300cm .014 gu opened to sterile field. 10:16:12 Left leg runoff performed. 10:16:24 Heparin Bolus 4000 units I.V. was administered by iWlliam Yeboah RN; for anticoagulation; verified with dr santiago 10:18:28 Inflation number: 1 A Cordis Powerflex Pro 6.0 x 40 x 135cm balloon was prepped and advanced across the Distal Femoral, Left, then inflated to 7 MARILIA for 0:10 (min:sec). 10:19:34 Balloon removed over the wire. 10:21:31 Fentanyl 50 mcg I.V. was administered by William Yeboah RN; for sedation; 10:22:28 Cordis SMART 6 X 80 X 120 stent was deployed across Distal Femoral, Left . 10:22:42 Stent catheter was removed intact over wire. 10:23:04 Balloon advanced to the SFA 10:23:39 Choice PT removed 10:23:48 [place] wire wire advanced. 10:24:26 Inflation number: 2 The Cordis Powerflex Pro 6.0 x 40 x 135cm balloon was reinflated across the Distal Femoral, Left, to 9 MARILIA for 0:00 (min:sec). 10:24:36 Inflation number: 3 The Cordis Powerflex Pro 6.0 x 40 x 135cm balloon was reinflated across the Distal Femoral, Left, to 11 MARILIA for 0:10 (min:sec). 10:26:34 glide wire removed and choice pt advanced. 10:28:09 Inflation number: 4 The Cordis Powerflex Pro 6.0 x 40 x 135cm balloon was reinflated across the Distal Femoral, Left, to 7 MARILIA for 0:20 (min:sec). 10:28:20 Balloon removed over the wire. 10:28:22 [place] Sci Choice PT Extra Support J 300cm .014 gu opened to sterile field. 10:30:44 Cordis SMART 6 X 60 X 120 stent was deployed across Distal Femoral, Left . 10:30:54 Stent catheter was removed intact over wire. 10:31:07 Inflation number: 5 The Cordis Powerflex Pro 6.0 x 40 x 135cm balloon was reinflated across the Distal Femoral, Left, to 9 MARILIA for 0:10 (min:sec). 10:31:18 Inflation number: 6 The Cordis Powerflex Pro 6.0 x 40 x 135cm balloon was reinflated across the Distal Femoral, Left, to 11 MARILIA for 0:10 (min:sec). 10:31:28 Balloon removed over the wire. 10:32:34 Cordis 6Fr Exoseal opened to sterile field. 10:32:45 Sheath removed intact; hemostasis achieved with Exoseal to the Right Femoral artery. 10:32:48 Procedure ended.(Physican Out) 10:33:01 Fluoroscopy time 07.70 minutes. 10:33:20 Fluoroscopy dose: 34 mGy 10:33:20 Flurop Dose total: 34 10:33:24 Contrast amount:Isovue 300 66ml. 10:33:26 Sharps counted by scrub and verified by R.N. 10:33:34 Insertion/operative site no bleeding no hematoma. 10:33:39 Post right femoral artery:stable 10:33:47 Post-procedure physical assessment completed. ASA score P 3 - A patient with severe systemic disease as per Isael Santiago MD. 10:33:50 Post procedure rhythm: unchanged. 10:33:53 Estimated blood loss: 10 ml 10:33:55 Post procedure instruction explained to patient.Patient verbalizes understanding. 10:34:17 Procedure type changed to Cath procedure, Miscellaneous Procedures, Moderate Sedation up to 15 minutes, Peripheral vascular Intervention, Stent, Stent-Fem/Popw/plasty 10:34:18 Procedure and supply charges have been captured, reviewed, submitted and are correct. 10:35:16 Procedure Complication : No complications 10:37:18 Vital chart was stopped 10:37:19 See physician's report for complete and final results. 10:37:31 Report given to Pre/Post Procedure Room. 10:37:42 Patient transfered to Pre/Post Procedure Room with Stretcher. 10:37:47 Procedure ended. 10:37:47 Full Disclosure recording stopped 10:37:57 End room use (Document Last) 10:38:21 ACC-PCI Only Patient was given prescriptions, or instructed by Isael Santiago MD to start/continue the following medications upon discharge: Plavix Intervention Summary Intervention Notes Time ActionType Lesion and Equipment Action# Pressure Duration Attributes Used 10:18:28 Inflate Distal Cordis 1 7 00:10 balloon Femoral, Powerflex Left Pro 6.0 x 40 x 135cm balloon 10:22:28 Deploy self Distal Cordis 1 expanding Femoral, SMART 6 X stent Left 80 X 120 stent 10:24:26 Reinflate Distal Cordis 2 9 00:00 balloon Femoral, Powerflex Left Pro 6.0 x 40 x 135cm balloon 10:24:36 Reinflate Distal Cordis 3 11 00:10 balloon Femoral, Powerflex Left Pro 6.0 x 40 x 135cm balloon 10:28:09 Reinflate Distal Cordis 4 7 00:20 balloon Femoral, Powerflex Left Pro 6.0 x 40 x 135cm balloon 10:30:44 Deploy self Distal Cordis 1 expanding Femoral, SMART 6 X stent Left 60 X 120 stent 10:31:07 Reinflate Distal Cordis 5 9 00:10 balloon Femoral, Powerflex Left Pro 6.0 x 40 x 135cm balloon 10:31:18 Reinflate Distal Cordis 6 11 00:10 balloon Femoral, Powerflex Left Pro 6.0 x 40 x 135cm balloon Device Usage Item Name Manufacture Quantity Catalog Number Hospital Part Current Minim al Lot# / Charge Number Stock Stock Serial# Code Acist Acist 1 91444 [id number] [id number] [id number] 20 Syringe Medical Systems Inc Acist Hand Acist 1 97967 122170 295511 675691 5 DataSphere Medical Systems Inc Bag Microtek 1 2002S 443343 17867 780577 5 Dec24Symbols Medical Inc. Medline Cardinal 1 [id number] 805801 39223 557665 [address] [facility] [address] Dez 1 193032 558357 919381 497406 30 260cm J .035 wire Merit Merit 1 [id number] 823395 318174 404857 15 BasixBringrs Medical Inflation Kit Acist Acist 1 71357 679569 228544 454250 5 Manifold Medical Systems Inc Tegaderm 4 3M 1 1626W 234555 716638 200218 5 x 4 Terumo 6Fr Terumo 1 WFE123 200792 950714 147526 40 [place] Sheath Terumo Terumo 1 [id number] 797728 537533 581195 5 ANGLE 260cm glide wire Terumo 6Fr Terumo 1 RSR01 942445 44148 883368 5 Bringhurst Destination Sheath Terumo [place] 1 TD01 510352 921185 054984 5 TORQUE Scientific DEVICE PLASTIC .038 Cordis Cardinal 1 [id number] 003682 504408 097742 10 Tempo 5Fr Health UF catheter [place] Sci [place] 2 [id number] 120193 487574 045959 5 Choice PT Scientific Extra Support J 300cm .014 gu Cordis Cardinal 1 [id number] 876369 695659 436394 5 Powerflex Health Pro 6.0 x 40 x 135cm balloon Cordis Cardinal 1 [id number] 946278 400740 855076 0 [id number] SMART 6 X Health 80 X 120 stent Cordis Cardinal 1 [id number] 471291 375064 509363 0 [id number] SMART 6 X Health 60 X 120 stent Cordis 6Fr Cardinal 1 EX600 116084 230016 662613 10 Bedloo Health Signature Audit [place] Stage Time Signature Unsigned Intra-Procedure 01/20/2017 Eileen Corona 10:40:16 AM RT(R) Signatures Monitor : Eileen Corona Signature : RT Date : Time : [address] [address]
[~2017-01-20 07:26] MED LIST: BAYER CHEWABLE81 MG PO; CARDIZEM CD120 MG PO; GEMFIBROZIL600 MG PO; GLUCOPHAGE500 MG PO; NITROSTAT0.4 MG SL; PINDOLOL10 MG PO; PLAVIX75 MG PO; PREVACID30 MG PO; PROPAFENONE HC150 MG PO; ZOCOR40 MG PO; ZOFRAN4 MG PO
[2017-01-20 07:56] VITALS: BP 115/61; Ht 177.8 cm; Wt 66.4 kg
[2017-01-20 08:12] LABS: HEMATOCRIT 37.9 % (42.0-54.0); HEMOGLOBIN 12.9 g/dL (13.5-17.5); MCH 30.1 pg (26.0-34.0); MCV 88.6 fL (80.0-100.0); MEAN PLATELET VOLUME 10.9 fL (7.4-10.4); PLATELET COUNT 243 10x3/uL (130-400); RBC 4.28 10x6/uL (4.20-6.10); RDW 13.3 % (11.5-14.5)
[2017-01-20 08:23] LABS: ANION GAP 15.3 mmol/L (8-16); CARBON DIOXIDE 24.5 mmol/L (21.0-32.0); CREATININE - SERUM 1.3 mg/dL (0.6-1.3); POTASSIUM - SERUM 4.8 mmol/L (3.5-5.1)
[2017-01-20 08:26] LABS: WBC 1.6 10x3/uL (4.8-10.8)
[2017-01-20 09:00] LABS: LYMPHOCYTES 32 % (15-50); MONOCYTES 6 % (2-11); NEUTROPHILS 29 % (40-80); PLATELET ESTIMATE NORMAL
[2017-01-20] MEDS ORDERED: BAYER CHEWABLE81 MG PO (10:58)
--- NOTE | 2017-01-20 11:00 | NUR ---
1100 HR NSR RATE 70, BP 132/50 NO DISTRESS NOTED CHEST PAIN IS DENIED. 6 FR EXOSEAL R/GROIN CDI NO BLEEDING NO HEMATOMA NOTED INSTRUCTED PATIENT TO KEEP HEAD FLAT ON PILLOW WITH RLE STRAIGHT
--- NOTE | 2017-01-20 11:28 | NUR ---
RESTING QUIETLY NO DISTRESS VSS WITH 6 FR EXOSEAL R/GROIN CDI NO BLEEDING NO HEMATOMA NOTED
--- NOTE | 2017-01-20 12:03 | NUR ---
6 FR EXOSEAL R/GROIN CDI NO BLEEDING NO HEMATOMA NOTED. SANDWICH AND SODA TO BEDSIDE WITH TO ASSIST
--- NOTE | 2017-01-20 12:30 | NUR ---
1230 R/GROIN CDI NO BLEEDING NO HEMATOMA NOTED VSS WITH PATIENT RESTING QUIETLY.
--- NOTE | 2017-01-20 13:00 | NUR ---
1300 6 FR EXOSEAL R/GROIN CDI NO BLEEDING NO HEMATOMA NOTED. VSS WILL CONTINUE TO MONITOR
--- NOTE | 2017-01-20 13:57 | NUR ---
RESTING QUIETLY WITH VSS NO DISCOMFORT NOTED. RESPIRATIONS EVEN AND UNLABORED. R/GROIN CDI NO BLEEDING NO HEMATOMA NOTED
--- NOTE | 2017-01-20 14:50 | NUR ---
REPOSITIONED TO SITTING WITH HOB UP 45 DEGREES. R/GROIN CDI NO BLEEDING NO HEMATOMA NOTED. CHEST PAIN DENIED
--- NOTE | 2017-01-20 15:18 | NUR ---
PIV REMOVED FROM LEFT WRIST WITH DRESSING APPLIED. PATIENT UP TO GET DRESSED FORM DISCHARGE HOME. CHEST PAIN DENIED
--- NOTE | 2017-01-20 15:35 | NUR ---
VERBAL AND WRITTEN DISCHARGE GONE OVER WITH PATIENT AND . BOTH VERBALIZED UNDERSTANDING. CHEST PAIN IS DENIED WITH 6 FR EXOSEAL R/GROIN CDI NO BLEEDING NO HEMATOMA NOTED. PATIENT LEFT VIA WC TO PARKING FOR TRANSPORT HOME WITH FRIENDS
== END 2017-01-20 15:37 | disposition home or self-care (01) ==
LOC: D.CATH 07:26
PROVIDERS: Internal Medicine Interventional Cardiology
DX: I70.212 Atherosclerosis of native arteries of extremities with intermittent claudication, left leg (principal); I25.10 Atherosclerotic heart disease of native coronary artery without angina pectoris; I10 Essential (primary) hypertension; E78.5 Hyperlipidemia, unspecified; Z01.812 Encounter for preprocedural laboratory examination

== ENCOUNTER 2017-12-01 08:20 | Outpatient (CLI) | payer MEDICARE, BC ==
[~2017-12-01] VITALS: Ht 177.8 cm; Wt 59.5 kg
--- NOTE | ~2017-12-01 | OP ---
PATIENT NAME: VERO ECHOLS MEDICAL RECORD: [id number] :34 LOCATION:D.CAT ADMISSION DATE: SURGEON: EVELYN PANITER MD DATE OF OPERATION: 12/01/2017 PROCEDURES: 1. PTCA stent LAD. 2. Left heart catheterization. 3. Selective coronary angiography. 4. Left ventriculogram. INDICATION: Angina and coronary artery disease. PROCEDURE IN DETAIL: After informed consent was obtained and after detailed explanation of risks, benefits as well as alternative therapies, the patient elected to proceed with angiogram and angioplasty. The right femoral area was prepped and draped in normal sterile fashion. The right femoral artery was cannulated via modified Seldinger technique with placement of 6-Ethiopian sheath. All catheters exchanged through this sheath. FINDINGS: The left ventriculogram was performed in standard 30-degree VELASQUEZ view, reveals good cardiac wall motion throughout all segments. Overall ejection fraction estimated at 60%. SELECTIVE CORONARY ANGIOGRAPHY: 1. Left main showed no significant angiographic disease. 2. Left anterior descending has a previously placed stent in the diagonal; however, after this, there is 80% and 90% stenosis. The diagonal system is actually larger than the LAD itself. 3. The left circumflex has moderate irregularities. 4. The right coronary artery has previously placed stent with 70% to 80% in-stent restenosis in the proximal vessel. PTCA STENT OF THE LAD DIAGONAL: The stent used was a 2.5 x 15 mm Fab. Result was 0% residual stenosis. OVERALL IMPRESSION: Successful percutaneous transluminal coronary angioplasty stent of the left anterior descending diagonal going from 80% to 90% initial stenosis to 0% residual. PLAN: PTCA stent of the RCA in the near future. TRANSINT:[id number] Voice Confirmation ID: [id number] DOCUMENT ID: [id number] EVELYN PAINTER MD at 1140 CC: [id number] DICTATION DATE: 12/01/17 1036 STEEL FITTER: 12/01/17 1131 [facility] [address] [place] [address]
--- NOTE | ~2017-12-01 | OP ---
PATIENT NAME: VERO ECHOLS MEDICAL RECORD: [id number] :34 LOCATION:D.CAT ADMISSION DATE: SURGEON: EVELYN PAINTER MD DATE OF OPERATION: 12/02/2017 PROCEDURES: 1. PTCA stent RCA. 2. Selective coronary angiography. INDICATION: Angina and coronary artery disease. PROCEDURE IN DETAIL: After informed consent was obtained and after detailed explanation of risks, benefits as well as alternative therapies, the patient elected to proceed with angiogram and angioplasty. The right femoral area was prepped and draped in normal sterile fashion. Right femoral artery was cannulated via modified Seldinger technique with placement of 7-Kyrgyz sheath. All catheters exchanged through this sheath. FINDINGS: The right coronary artery has an ulcerated 80% stenosis distally. This was addressed with a 3.5 x 12 mm Integrity stent times 2. The result was 0% residual stenosis. OVERALL IMPRESSION: Successful percutaneous transluminal coronary angioplasty stent of the right coronary artery going from 80% initial stenosis to 0% residual. TRANSINT:[id number] Voice Confirmation ID: [id number] DOCUMENT ID: [id number] EVELYN PAINTER MD at 1056 CC: [id number] DICTATION DATE: 12/02/17 0916 CALL CENTER MANAGER: 12/02/17 1221 [facility] CLI 12/02/[address] [address]
--- NOTE | ~2017-12-01 | HEMODYNAMI ---
PATIENT:VERO ECHOLS MEDICAL RECORD: [id number] : 34 LOCATION:[facility] ADMISSION DATE: 12/01/17 Generatedon:12/01/201710:39 Patient name: VERO ECHOLS Patient #: [id number] SSN : [id number] : 1930 Date of study: 12/01/2017 Page: Of Hemodynamic Procedure Report Patient Data Patient Demographics Procedure consent was obtained First Name: VERO Gender: Male Last Name: KINZA : 1930 Middle Initial: L Age: 87 year(s) Patient #: [id number] Race: SSN: [id number] Additional ID: [id number] Contact details Address: [address] [place] [address] State: [place] City: [facility] Zip code: [address] Past Medical History Allergies Allergen Reaction Date Comments Reported Other allergy 01/15/2017 Iodine, IV contrast Other allergy 01/20/2017 Iodine Iodine 12/01/2017 Iodine 12/01/2017 IV contrast dye 12/01/2017 Admission Admission Data Admission Date: 12/01/2017 Admission Time: 8:20 Weight (lbs.): 137 Weight (kg.): 62.14 Lab Results Lab Result Date: 12/01/2017 Lab Result Time: 1:00 CBC Name Units Result Min Max Hemoglobin g/dl 12.1 *-(----)-- 13.5 17.5 Procedure Procedure Types Cath Procedure Diagnostic Procedure LHC LH w/Coronaries PCI Procedure Coronary Stent Coronary Stent Initial Procedure Description Procedure Date Procedure Date: 12/01/2017 Procedure Start Time: 10:19 Procedure End Time: 10:37 Procedure Staff Name Function Isael Santiago MD Performing Physician Annmarie Burks RT Monitor William Yeboah RN Nurse Oliver Justin RT Scrub Procedure Data Cath Procedure Fluoroscopy Diagnostic fluoroscopy Total fluoroscopy Time: 3.1 time: 3.1 min min Diagnostic fluoroscopy Total fluoroscopy dose: 352 dose: 352 mGy mGy Contrast Material Contrast Material Type Amount (ml) Isovue 300 79 Entry Location Entry Primary Successful Side Size Upsize Upsize Entry Closure Tabor ccessful Closure Location (Fr) 1 (Fr) 2 (Fr) Remarks Device Remarks Radial Right 6 Fr Mechanical artery Short Compression Estimated blood loss: 10 ml Diagnostic catheters Device Type Used For End Catheter Placement DIAGNOSTIC Council 110cm 5 Procedure Fr catheter ([id number]) Procedure Complications No complications Procedure Medications Medication Administration Route Dosage Oxygen NC 2 l/min Lidocaine 2% added to field 20 Heparin Flush Bag added to field 2 bags (1000units/500ml NS) 0.9% NaCl I.V. 100 ml/hr Versed I.V. 1 mg Fentanyl I.V. 50 mcg Radial Cocktail I.A. 1 syringe (Verapomil 2mg/Nitro 400mcg/Heparin 1500units) Heparin Bolus I.V. 4000 units Versed I.V. 1 mg Fentanyl I.V. 50 mcg Hemodynamics Rest HGB: 12.1 (g/dl) Heart Rate: 86 (bpm) Snapshots Pre Cath Intra NCS Post Cath Vital Signs Time Heart Resp SPO2 etCO2 NIBP (mmHg) Rhythm Pain Sedation Rate (ipm) (%) (mmHg) Status Level (bpm) 10:05:33 86 14 98 0 146/70(120) NSR 0 (11) 10(A) , No pain 10:10:11 87 15 99 28.5 160/78(128) NSR 0 (11) 10(A) , No pain 10:14:52 86 26 99 19.5 162/90(130) NSR 0 (11) 10(A) , No pain 10:19:41 86 18 96 27 162/87(135) NSR 0 (11) 10(A) , No pain 10:24:23 83 15 97 0 124/63(93) NSR 0 (11) 9(A) , No pain 10:29:04 81 15 94 32.2 127/62(98) NSR 0 (11) 9(A) , No pain 10:33:45 84 16 94 0 125/63(91) NSR 0 (11) 10(A) , No pain Medications Time Medication Route Dose Verified Delivered Reason Not es Effectiveness by by 10:10:15 Oxygen NC 2 l/min Isael Thomas used for Pamela Yeboah catalog specialist 10:10:21 Lidocaine 2% added 20ml Isael Kirkland for local to vial Pamela Santiago MD anesthetic field 10:10:30 Heparin Flush added 2 bags Isael Kirkland used for Bag to Pamela Santiago MD procedure (1000units/500ml field NS) 10:10:39 0.9% NaCl I.V. 100ml/hr Isael Thomas Per physician Pamela Yeboah RN 10:23:03 Versed I.V. 1 mg Isael Thomas for sedation Pamela Yeboah RN 10:23:09 Fentanyl I.V. 50 mcg Isael Thomas for sedation Pamela Yeboah RN 10:23:56 Radial Cocktail I.A. 1 Isael Kirkland for (Verapomil syringe Pamela Santiago MD vasodilation 2mg/Nitro 400mcg/Heparin 1500units) 10:28:25 Heparin Bolus I.V. 4000 Isael Thomas for TIAGO IFIED units Pamela Yeboah RN anticoagulation WITH DR SANTIAGO 10:29:31 Versed I.V. 1 mg Isael Thomas for sedation Pamela Yeboah RN 10:29:34 Fentanyl I.V. 50 mcg Isael Thomas for sedation Pamela Yeboah RN Procedure Log Time Note 9:21:26 Plan of Care:Hemodynamics will remain stable., Cardiac rhythm will remain stable., Comfort level will be maintained., Respiratory function will remain adequate., Patient/ family verbilizes understanding of procedure., Procedure tolerated without complication., Recovers from procedure without complications.. 9:21:27 Time tracking: Regular hours 9:21:29 Signed procedure consent form obtained from patient. 9:21:47 H&P Date Dictated: 11/05/2017 Within 30 days and on chart., H&P Addendum completed by physician on day of procedure. (MUST COMPLETE FOR ALL OUTPATIENTS). 9:22:27 Patient allergic to Iodine 9:22:38 Patient allergic to Iodine 9:23:00 Patient allergic to IV contrast dye 9:23:17 Patient Weight : 137 lbs 9:43:03 Lab Result : BUN 22 mg/dl 9:43:03 Lab Result : Creatinine 0.7 mg/dl 9:43:15 Oliver Justin RT(R) sent for patient. Start room use. 9:51:00 Patient received from Pre/Post Procedure Room to CCL 1 Alert and oriented. Tansferred to table in Supine position. 9:51:01 Warm blankets applied, and kaushik hugger turned on for patient comfort. 9:51:01 Correct patient and procedure confirmed by team. 9:51:02 ECG and BP/O2 sat monitors applied to patient. 9:52:57 Snore? Yes 9:53:00 Patient diabetic? Yes. 9:53:01 If diabetic: On Metformin? Yes 9:53:04 If on Metformin: Last Dose? 11/29/2017 9:53:07 Sleep apnea? No 9:53:08 Deviated septum? No 9:53:09 Opens mouth fully? Yes 9:53:11 Sticks out tongue? Yes 9:53:15 Airway obstruction? No ? 10:04:44 Vital chart was started 10:04:47 Baseline sample Acquired. 10:04:58 Rhythm: sinus rhythm 10:05:00 Full Disclosure recording started 10:05:00 Pre-procedure instructions explained to patient. 10:05:01 Pre-op teaching completed and patient verbalized understanding. 10:05:02 Family in patients room. 10:05:04 Patient NPO since Midnight. 10:05:06 Is the patient allergic to Iodine/contrast media? Yes. 10:05:08 Was the patient premedicated? Yes 10:05:09 Is patient on blood thinner?Yes 10:05:12 ACC The patient was administered the following blood thiners within the last 24 hours: ACCPlavix 10:05:20 Previous problem with sedation/anesthesia? No ? 10:05:28 Modified Jonny's test Ulnar < 7 seconds 10:05:30 Patient pain scale 0/10 ?. 10:05:35 IV patent on arrival in right antecubital with 0.9% NaCl at O. 10:05:39 Lab results completed and on chart. 10:05:42 Right Radial & Right Groin area was prepped with chlora-prep and draped in sterile fashion 10:05:43 Alarms reviewed by R. N. 10:05:43 Sharps counted by scrub and verified by R.N. 10:05:47 Use device set Radial Dx or PCI 10:05:48 ACIST Syringe (95197) opened to sterile field. 10:05:50 Bag Decanter (2002S) opened to sterile field. 10:05:51 ACIST Manifold (36394) opened to sterile field. 10:05:52 ACIST Hand Control (46416) opened to sterile field. 10:05:53 Tegaderm 4 x 4 (1626W) opened to sterile field. 10:05:55 Medline Cath Pack ([id number]) opened to sterile field. 10:05:55 SHEATH 6FR Slender ([id number]) opened to sterile field. 10:05:56 DIAGNOSTIC WIRE .035 260cm J wire (498718) opened to sterile field. 10:05:58 MBrace Wrist Support ([id number]) opened to sterile field. 10:10:15 Oxygen 2 l/min NC was administered by William Yeboah RN; used for procedure; 10:10:21 Lidocaine 2% 20ml vial added to field was administered by Isael Santiago MD; for local anesthetic; 10:10:30 Heparin Flush Bag (1000units/500ml NS) 2 bags added to field was administered by Isael Santiago MD; used for procedure; 10:10:39 0.9% NaCl 100ml/hr I.V. was administered by William Yeboah RN; Per physician; 10:16:33 Zero performed for pressure channel P1 10:16:54 --------ALL STOP TIME OUT------ 10:16:55 Final Timeout: patient, procedure, and site verified with staff and physician. All members of the team are in agreement. 10:16:56 Right Radial & Right Groin site verified by team. 10:17:00 Physical assessment completed. ASA score P 2 - A patient with mild systemic disease as per Isael Santiago MD. 10:17:02 Sedation plan: IV Moderate Sedation Medication:Versed, Fentanyl 10:18:40 Lab Result : Hemoglobin 12.1 g/dl 10:19:15 pt iv on right ac no longer working. new iv put in 10:19:26 IV right antecubital D/C'd due to other.. 10:19:35 IV started by William Yeboah RN inleft hand with a 22 gauge IV catheter with 0.9% NaCl at KVO. 10:19:39 Procedure started. 10:19:46 Local anesthetic to right radial artery with Lidocaine 2% by Isael Santiago MD.INITIAL ACCESS ONLY 10::43 A 6 Fr Short sheath was inserted into the Right Radial artery 10:23:03 Versed 1 mg I.V. was administered by William Yeboah RN; for sedation; 10:23:09 Fentanyl 50 mcg I.V. was administered by William Yeboah RN; for sedation; 10:23:51 A DIAGNOSTIC Council 110cm 5 Fr catheter (087784) was advanced over the wire and used for Procedure. 10:23:56 Radial Cocktail (Verapomil 2mg/Nitro 400mcg/Heparin 1500units) 1 syringe I.A. was administered by Isael Santiago MD; for vasodilation; 10::25 LV gram done using VELASQUEZ 10::28 Injector settings: Ml/sec: 5, Volume: 15, 10:25:22 EF : 60 % 10:25:37 LCA angiography performed. 10:26:50 RCA angiography performed. 10::58 Catheter removed. 10::23 INFLATOR Merit BasixCompak (GK2217) opened to sterile field. 10:27:28 CHOICE PT Extra Support 182cm wire ([id number]) opened to sterile field. 10:28:08 GUIDE 6FR XBLAD 3.5 catheter ([id number]) opened to sterile field. 10:28:25 Heparin Bolus 4000 units I.V. was administered by William Yeboah RN; for anticoagulation; VERIFIED WITH DR SANTIAGO 10:28:29 6 Fr XBLAD 3.5 guide catheter was inserted over the wire 10:29:17 CHOICE PT 182 wire advanced. 10::31 Versed 1 mg I.V. was administered by William Yeboah RN; for sedation; 10::34 Fentanyl 50 mcg I.V. was administered by William Yeboah RN; for sedation; 10:30:07 Wire advanced across lesion. 10:31:31 Inflation Number: 1 A JALYN RX 2.5 x 15 stent ([id number]) was prepped and advanced across the 1st Diag. The stent was deployed at 13 MARILIA for 0:10 (min:sec). ::43 Inflation number: 2 The stent balloon was then re-inflated across the 1st Diag to 13 MARILIA for 0:10 (min:sec). 10:32:09 Stent catheter was removed intact over wire. 10:32:10 Wire removed. 10:32:11 Guide catheter removed. 10:32:26 TR BAND Standard ([id number]) opened to sterile field. 10:32:31 Procedure ended.(Physican Out) 10:32:36 Sheath removed intact; hemostasis achieved with Mechanical Compression to the Right Radial artery. 10:33:56 Fluoroscopy time 03.10 minutes. 10:34:00 Flurop Dose total: 352 10:34:00 Fluoroscopy dose: 352 mGy 10:34:14 Contrast amount:Isovue 300 79ml. 10:34:16 Sharps counted by scrub and verified by R.N. 10:34:18 TR band inflated with 10cc of air. 10:34:25 Post-procedure physical assessment completed. ASA score P 2 - A patient with mild systemic disease as per Isael Santiago MD. 10:34:28 Post procedure rhythm: unchanged. 10:34:30 Estimated blood loss: 10 ml 10:34:31 Post procedure instruction explained to patient.Patient verbalizes understanding. 10:34:32 Patient needs reinforcement of post procedure teaching. 10:34:50 Procedure type changed to Cath procedure, Diagnostic procedure, LHC, LHC w/Coronaries, PCI procedure, Coronary Stent, Coronary Stent Initial 10:36:05 Procedure and supply charges have been captured, reviewed, submitted and are correct. 10:36:05 Procedure and supply charges have been captured, reviewed, submitted and are correct. 10:36:10 Procedure Complication : No complications 10:36:12 Vital chart was stopped 10:36:12 See physician's report for complete and final results. 10:37:09 Report given to Pre/Post Procedure Room. 10:37:12 Patient transfered to Pre/Post Procedure Room with Bed. 10:37:14 Procedure ended. 10:37:14 Full Disclosure recording stopped 10:37:18 End room use (Document Last) Intervention Summary Intervention Notes Time ActionType Lesion and Equipment Used Action# Pressure Duration Attributes 10:31:31 Place stent 1st Diag JALYN RX 2.5 x 1 13 00:10 15 stent ([id number]) 10:31:43 Reinflate 1st Diag JALYN RX 2.5 x 2 13 00:10 stent 15 stent balloon ([id number]) Device Usage Item Name Manufacture Quantity Catalog Number Hospital Part Current M inimal Lot# / Charge Number Stock Stock Serial# Code ACIST Syringe Acist 1 54058 476608 344683 707306 2 0 (48266) Medical Systems Inc Bag Decanter Microtek 1 2001S 151506 29329 581413 5 (2001S) Medical Inc. ACIST Manifold Acist 1 02735 446373 597382 828115 5 (07325) Medical Systems Inc ACIST Hand Acist 1 24216 758574 204230 435118 5 Control Medical (10135) Systems Inc Tegaderm 4 x 4 3M 1 1626W 590184 993462 468920 5 (1626W) Medline Cath Cardinal 1 [id number] 273085 67836 068108 5 Pack Health ([id number]) SHEATH 6FR Terumo 1 [id number] 325384 801353 445320 4 0 Slender ([id number]) DIAGNOSTIC St Dez 1 361599 462874 274657 719733 3 0 WIRE .035 260cm J wire (808278) MBrace Wrist Advanced 1 140-0250-00 762880 29834 763921 5 Support Vascular (000316267) Dynamics DIAGNOSTIC Terumo 1 40-3323 020488 482152 854668 5 Council 110cm 5 Fr catheter (953253) INFLATOR Merit Merit 1 PJ0478 057499 045105 762054 1 5 EATONctCrossWorld Warranty [facility] (LZ5926) CHOICE PT [place] 1 [id number] 250226 097462 366495 5 Extra Support Scientific 182cm wire ([id number]) GUIDE 6FR Cardinal 1 [id number] 962490 771458 662705 1 0 XBLAD 3.5 Health catheter (65406877) JALYN RX 2.5 x Medtronic 1 [id number] 474934 1094105 181010 5 [id number] 15 stent ([id number]) TR BAND Terumo 1 [id number] 207012 849182 156247 4 0 Standard ([id number]) Signature Audit [place] Stage Time Signature Unsigned Intra-Procedure 12/01/2017 Annmarie Burks 10:39:29 AM RT(R) Signatures Monitor : Annmarie Burks Signature : RT Date : Time : [place] [address] [place] [address]
--- NOTE | ~2017-12-01 | DS ---
PATIENT:VERO ECHOLS :34 MEDICAL RECORD: [id number] DISCHARGE SUMMARY ADMISSION DATE: 12/01/17 DISCHARGE DATE: 12/02/17 DISCHARGE DIAGNOSES: 1. Angina. 2. Coronary artery disease. 3. PTCA stent to RCA and LAD this admission. 4. Hypertension. HOSPITAL COURSE: Mr. Echols presents with unstable anginal symptomatology, found to have 2-vessel coronary artery disease of the LAD and RCA, underwent successful PTCA stent of both territories. Discharged home with the addition of aspirin and Plavix to his medical regimen. He will follow up with [facility] in 1 month. TRANSINT:[id number] Voice Confirmation ID: [id number] DOCUMENT ID: [id number] EVELYN PAINTER MD at 1056 CC: [id number] DICTATION DATE: 12/02/1715 COUTURIERE: 12/02/17 1423 DEP CLI 12/02/17 [place] [place] [address]
--- NOTE | ~2017-12-01 | HEMODYNAMI ---
PATIENT:VERO ECHOLS MEDICAL RECORD: [id number] : 34 [facility] [id number] ADMISSION DATE: 12/01/17 Generatedon:12/02/20179:17 Patient name: VERO ECHOLS Patient #: [id number] SSN : [id number] : 1930 Date of study: 12/02/2017 Page: Of Hemodynamic Procedure Report Patient Data Patient Demographics Procedure consent was obtained First Name: VERO Gender: Male Last Name: KINZA : 1930 Middle Initial: L Age: 87 year(s) Patient #: [id number] Race: SSN: [id number] Additional ID: [id number] Contact details Address: [address] [place] [address] State: [place] City: [facility] Zip code: [address] Past Medical History Allergies Allergen Reaction Date Comments Reported Other allergy 01/15/2017 Iodine, IV contrast Other allergy 01/20/2017 Iodine Iodine 12/01/2017 Iodine 12/01/2017 IV contrast dye 12/01/2017 Admission Admission Data Admission Date: 12/01/2017 Admission Time: 8:20 Room #: [facility]9 Weight (lbs.): 137 Weight (kg.): 62.14 Lab Results Lab Result Date: 12/01/2017 Lab Result Time: 1:00 CBC Name Units Result Min Max Hemoglobin g/dl 12.1 *-(----)-- 13.5 17.5 Procedure Procedure Types Cath Procedure Diagnostic Procedure PCI Procedure Coronary Stent Coronary Stent Initial Procedure Description Procedure Date Procedure Date: 12/02/2017 Procedure Start Time: 8:59 Procedure End Time: 9:16 Procedure Staff Name Function Isael Santiago MD Performing Physician Eileen Corona RT Monitor Samia Day RT Scrub Amandeep Herman RN Rotor Casting Machine Operator Edwin Caraballo RN Nurse Procedure Data Cath Procedure Fluoroscopy Diagnostic fluoroscopy Total fluoroscopy Time: 396 time: 396 min min Diagnostic fluoroscopy Total fluoroscopy dose: 5.4 dose: 5.4 mGy mGy Contrast Material Contrast Material Type Amount (ml) Isovue 300 94 Entry Location Entry Primary Successful Side Size Upsize Upsize Entry Closure Succes sful Closure Location (Fr) 1 (Fr) 2 (Fr) Remarks Device Remarks Femoral Right 7 Fr Exoseal artery Short Estimated blood loss: 10 ml Procedure Complications No complications Procedure Medications Medication Administration Route Dosage 0.9% NaCl I.V. 100 ml/hr Oxygen NC 2 l/min Heparin Flush Bag added to field 2 bags (1000units/500ml NS) Lidocaine 2% added to field 20 Versed I.V. 2 mg Fentanyl I.V. 100 mcg Heparin Bolus I.V. 4000 units Hemodynamics Rest HGB: 12.1 (g/dl) Heart Rate: 99 (bpm) Snapshots Pre Cath Intra NCS Post Cath Vital Signs Time Heart Resp SPO2 etCO2 NIBP (mmHg) Rhythm Pain Sedation Rate (ipm) (%) (mmHg) Status Level (bpm) 8:45:53 96 15 100 16.4 181/97(136) NSR 0 (11) 10(A) , No pain 8:50:13 95 18 100 24.6 171/90(128) NSR 0 (11) 10(A) , No pain 8:54:34 96 27 100 20.9 171/84(128) NSR 0 (11) 10(A) , No pain 8:58:53 94 16 99 24.6 158/81(130) NSR 0 (11) 10(A) , No pain 9:03:08 95 17 99 14.9 165/84(136) NSR 0 (11) 9(A) , No pain Medications Time Medication Route Dose Verified Delivered Reason Notes Effectiveness by by 8:48:23 0.9% NaCl I.V. 100 Edwin Edwin Per physician ml/hr Ilya Caraballo RN RN 8:48:34 Oxygen NC 2 Edwin Edwin Per physician l/min Ilya Caraballo RN, RN 8:48:45 Heparin Flush added 2 Edwin Edwin used for Bag to bags Ilya Caraballo procedure (1000units/500ml field PATTI ARMSTRONG NS) 8:48:55 Lidocaine 2% added 20ml Edwin Edwin for local to vial Lorigan Lorigan anesthetic field PATTI ARMSTRONG 8:59:06 Versed I.V. 2 mg Edwin Edwin for sedation Lorigan Lorigan RN RN 8:59:15 Fentanyl I.V. 100 Edwin Edwin for sedation mcg Ilya Caraballo RN RN 9:02:00 Heparin Bolus I.V. 4000 Edwin Pineda for units Ilya Caraballo anticoagulation RN inspector chief Log Time Note 8:30:01 Patient Weight : 137 lbs 8:30:04 Amandeep Herman RN sent for patient. Start room use. 8:30:05 Time tracking: Regular hours 8:30:10 Plan of Care:Hemodynamics will remain stable., Cardiac rhythm will remain stable., Comfort level will be maintained., Respiratory function will remain adequate., Patient/ family verbilizes understanding of procedure., Procedure tolerated without complication., Recovers from procedure without complications.. 8:44:41 Patient received from Med II to CCL 2 Alert and oriented. Tansferred to table in Supine position. 8:44:42 Warm blankets applied, and kaushik hugger turned on for patient comfort. 8:44:43 Correct patient and procedure confirmed by team. 8:44:44 Signed procedure consent form obtained from patient. 8:44:45 ECG and BP/O2 sat monitors applied to patient. 8:44:46 Vital chart was started 8:44:48 Baseline sample Acquired. 8:44:51 Rhythm: sinus rhythm 8:44:53 Full Disclosure recording started 8:45:00 H&P Date Dictated: 12/02/2017 Within 30 days and on chart.. 8:45:02 Pre-procedure instructions explained to patient. 8:45:02 Pre-op teaching completed and patient verbalized understanding. 8:45:04 Family in waiting room. 8:45:05 Patient NPO since Midnight. 8:45:08 Is the patient allergic to Iodine/contrast media? No. 8:45:09 Was the patient premedicated? No 8:45:11 Is patient on blood thinner?Yes 8:45:14 ACC The patient was administered the following blood thiners within the last 24 hours: ACCPlavix 8:48:23 0.9% NaCl 100 ml/hr I.V. was administered by Edwin Caraballo RN; Per physician; 8:48:34 Oxygen 2 l/min NC was administered by Edwin Caraballo RN; Per physician; 8:48:45 Heparin Flush Bag (1000units/500ml NS) 2 bags added to field was administered by Edwin Caraballo RN; used for procedure; 8:48:55 Lidocaine 2% 20ml vial added to field was administered by Edwin Caraballo RN; for local anesthetic; 8:55:01 Snore? Yes 8:55:05 Dentures? Yes ? 8:55:13 Patient diabetic? No. 8:55:15 Sleep apnea? No 8:55:22 IV patent on arrival in left hand with 0.9% NaCl at [facility]. 8:55:28 Lab results completed and on chart. 8:55:33 Right groin area was prepped with chlora-prep and draped in sterile fashion 8:55:34 Alarms reviewed by R. N. 8:55:34 Sharps counted by scrub and verified by R.N. 8:55:35 Physician paged 8:55:36 Physician arrived 8:55:36 --------ALL STOP TIME OUT------ 8:55:37 Final Timeout: patient, procedure, and site verified with staff and physician. All members of the team are in agreement. 8:55:39 Right groin site verified by team. 8:55:44 Physical assessment completed. ASA score P 2 - A patient with mild systemic disease as per Isael Santiago MD. 8:55:47 Sedation plan: IV Moderate Sedation Medication:Versed, Fentanyl 8:56:04 Use device set Femoral Dx 8:58:41 DIAGNOSTIC WIRE .035 260cm J wire ([id number]) opened to sterile field. 8:58:44 ACIST Hand Control (63571) opened to sterile field. 8:58:45 ACIST Manifold (95357) opened to sterile field. 8:58:48 Zero performed for pressure channel P1 8:58:53 Tegaderm 4 x 4 (1626W) opened to sterile field. 8:58:56 PERCUTANEOUS ENTRY 19GA needle opened to sterile field. 8:58:59 SHEATH 7FR Graham (JNJ194) opened to sterile field. 8:59:01 GUIDE 7FR AR 2.0 catheter ([id number]) opened to sterile field. 8:59:02 CHOICE PT Extra Support 182cm wire ([id number]) opened to sterile field. 8:59:06 Versed 2 mg I.V. was administered by Edwin Caraballo RN; for sedation; 8:59:15 Fentanyl 100 mcg I.V. was administered by Edwin Caraballo RN; for sedation; 8:59:23 Procedure started. 8:59:43 Local anesthetic to right femoral artery with Lidocaine 2% by Isael Santiago MD.INITIAL ACCESS ONLY 8:59:56 A 7 Fr Short sheath was inserted into the Right Femoral artery 9:00:27 7 Fr AR2 guide catheter was inserted over the wire 9:00:39 Choice PT wire advanced. 9:02:00 Heparin Bolus 4000 units I.V. was administered by Edwin Caraballo RN; for anticoagulation; 9:02:30 Wire advanced across lesion. 9:04:38 Inflation Number: 1 A INTEGRITY RX 3.5 x 12 stent ([id number]) was prepped and advanced across the Dist RCA. The stent was deployed at 13 MARILIA for 0:00 (min:sec). 9:05:13 Inflation number: 1 The stent balloon was then re-inflated across the Prox RCA to 13 MARILIA for 0:10 (min:sec). 9:05:38 Wire removed. 9:05:39 Guide catheter removed. 9:06:28 EXOSEAL 7Fr (EX700) opened to sterile field. 9:10:10 7 Fr AR2 guide catheter was inserted over the wire 9:10:17 Choice PT wire advanced. 9:11:18 Inflation Number: 1 A INTEGRITY RX 3.5 x 12 stent ([id number]) was prepped and advanced across the Mid RCA. The stent was deployed at 17 MARILIA for 0:06 (min:sec). 9:11:53 Wire removed. 9:11:54 Guide catheter removed. 9:12:16 Sheath removed intact; hemostasis achieved with Exoseal to the Right Femoral artery. 9:12:20 Procedure ended.(Physican Out) 9:12:30 Fluoroscopy time 396.00 minutes. 9:12:38 Fluoroscopy dose: 5.4 mGy 9:12:38 Flurop Dose total: 5.4 9:12:42 Contrast amount:Isovue 300 94ml. 9:12:44 Sharps counted by scrub and verified by R.N. 9:12:47 Insertion/operative site no bleeding no hematoma. 9:12:52 Post-op/insertion site Right Femoral artery dressed using a 4 x 4 and Tegaderm. 9:12:53 Post Procedure Pulses reassessed and unchanged 9:12:56 Post-procedure physical assessment completed. ASA score P 2 - A patient with mild systemic disease as per Isael Santiago MD. 9:13:00 Post procedure rhythm: unchanged. 9:13:09 Estimated blood loss: 10 ml 9:13:10 Post procedure instruction explained to patient.Patient verbalizes understanding. 9:14:03 Procedure type changed to Cath procedure, Diagnostic procedure, PCI procedure, Coronary Stent, Coronary Stent Initial 9:14:32 Procedure and supply charges have been captured, reviewed, submitted and are correct. 9:16:39 Procedure Complication : No complications 9:16:41 Vital chart was stopped 9:16:43 See physician's report for complete and final results. 9:16:44 Report given to Pre/Post Procedure Room. 9:16:48 Patient transfered to Pre/Post Procedure Room with Stretcher. 9:16:50 Procedure ended. 9:16:50 Full Disclosure recording stopped 9:16:54 End room use (Document Last) 9:16:54 End room use (Document Last) 9:17:06 ACC-PCI Only Patient was given prescriptions, or instructed by Isael Santiago MD to start/continue the following medications upon discharge: Plavix Intervention Summary Intervention Notes Time ActionType Lesion and Equipment Action# Pressure Duration Attributes Used 9:04:38 Place stent Dist RCA INTEGRITY RX 1 13 00:00 3.5 x 12 stent ([id number]) 9:05:13 Reinflate Prox RCA INTEGRITY RX 1 13 00:10 stent 3.5 x 12 balloon stent ([id number]) 9:11:18 Place stent Mid RCA INTEGRITY RX 1 17 00:06 3.5 x 12 stent ([id number]) Device Usage Item Name Manufacture Quantity Catalog Number Hospital Part Current Mini mal Lot# / Charge Number Stock Stock Serial# Code DIAGNOSTIC St Dez 1 172189 273685 224728 793153 30 WIRE .035 260cm J wire (995648) ACIST Hand Acist 1 44202 356310 003452 392623 5 Control Medical (11107) Systems Inc ACIST Acist 1 40658 457621 253702 002711 5 Manifold Medical (71262) Systems Inc Tegaderm 4 x 3M 1 1626W 130341 889587 822478 5 4 (1626W) PERCUTANEOUS Cook Medical 1 [id number] 146176 299344 5 ENTRY 19GA needle SHEATH 7FR Terumo 1 EOH468 677808 477335 209794 5 Graham (UPO557) GUIDE 7FR AR Medtronic 1 [id number] 540860 281120 304133 0 2.0 catheter (GI1XJ13) CHOICE PT [place] 1 [id number] 541767 189999 254126 5 Extra Scientific Support 182cm wire ([id number]) INTEGRITY RX Medtronic 2 [id number] 749397 453826 933804 5 [id number] 3.5 x 12 [id number] stent ([id number]) EXOSEAL 7Fr Cardinal 1 EX700 335686 169627 500262 5 (EX700) Health Signature Audit [place] Stage Time Signature Unsigned Intra-Procedure 12/02/2017 Eileen Corona 9:17:26 AM RT(R) Signatures Monitor : Eileen Corona Signature : RT Date : Time : [place] [address] [place] [address]
[2017-12-01] MEDS ORDERED: TOBREX5 ML EACH EYE (08:54)
[2017-12-01] MEDS ORDERED: VITAMIN D250000 UNIT PO (08:54)
[2017-12-01] MEDS ORDERED: VITAMIN B-1000 MCG/M IM (08:54)
[2017-12-01] MEDS ORDERED: ALAWAY10 ML EACH EYE (08:55)
[2017-12-01] MEDS ORDERED: REFRESH TEARS15 ML EACH EYE (08:56)
[2017-12-01 09:06] VITALS: BP 142/67; BMI 20.1
[2017-12-01 09:31] LABS: CALC OSMOLALITY 286 mosm/kg (275-300); CALCIUM 9.1 mg/dL (8.5-10.1); CARBON DIOXIDE 23.1 mmol/L (21.0-32.0); CHLORIDE - SERUM 100 mmol/L (98-107); CREATININE - SERUM 0.7 mg/dL (0.6-1.3); SODIUM 136 mmol/L (136-145); UREA NITROGEN 22 mg/dL (7-18); eGFR NON AFRICAN AMERICAN > 90 mL/min (90-120)
[2017-12-01 09:40] LABS: GLUCOSE 307 mg/dL (74-106)
[2017-12-01 10:06] LABS: BASOPHILS 0.5 % (0-2); EOSINOPHILS 0 % (0-7); HEMATOCRIT 35.3 % (42.0-54.0); HEMOGLOBIN 12.1 g/dL (13.5-17.5); LYMPHOCYTES 21.6 % (15-50); MCH 30.2 pg (26.0-34.0); MCHC 34.3 g/dL (31.0-37.0); MONOCYTES 8.7 % (2-11); NEUTROPHILS 64.2 % (40-80); PLATELET COUNT 224 10x3/uL (130-400); RBC 4.01 10x6/uL (4.20-6.10); RDW 14.2 % (11.5-14.5); WBC 2.2 10x3/uL (4.8-10.8)
[2017-12-01 12:30] VITALS: BP 148/84; Ht 177.8 cm; Wt 59.5 kg
[2017-12-01 15:02] VITALS: BP 156/76
[2017-12-01 21:06] VITALS: BP 138/66
[2017-12-02 05:27] VITALS: BP 150/77
[2017-12-02 08:06] VITALS: BP 167/85
== END 2017-12-02 15:05 | disposition home or self-care (01) ==
LOC: D.M2 08:20 → D.CATH 08:20 → D.M2 11:50 → D.CLR 12-02 09:39 → D.CATH 12-02 15:05
PROVIDERS: Internal Medicine Interventional Cardiology
DX: I25.119 Atherosclerotic heart disease of native coronary artery with unspecified angina pectoris (principal); T82.855A Stenosis of coronary artery stent, initial encounter; I10 Essential (primary) hypertension; Z01.812 Encounter for preprocedural laboratory examination
CPT/HCPCS: 93458; 92928; C9600

== ENCOUNTER 2017-12-12 05:38 | Emergency (ER) | payer MEDICARE, BC ==
[2017-12-01 12:30] VITALS: BMI 20.1
[~2017-12-12 05:38] MED LIST changes: +ALAWAY10 ML EACH EYE; +REFRESH TEARS15 ML EACH EYE; +TOBREX5 ML EACH EYE; +VITAMIN B-1000 MCG/M IM; +VITAMIN D250000 UNIT PO
[2017-12-12 06:39] LABS: BASOPHILS 0.5 % (0-2); EOSINOPHILS 1.9 % (0-7); HEMATOCRIT 30.9 % (42.0-54.0); HEMOGLOBIN 10.5 g/dL (13.5-17.5); LYMPHOCYTES 27.2 % (15-50); MCH 29.9 pg (26.0-34.0); MEAN PLATELET VOLUME 10.6 fL (7.4-10.4); MONOCYTES 11.2 % (2-11); NEUTROPHILS 58.2 % (40-80); RBC 3.51 10x6/uL (4.20-6.10); RDW 14.1 % (11.5-14.5); WBC 2.1 10x3/uL (4.8-10.8)
[2017-12-12 06:40] LABS: PLATELET COUNT 172 10x3/uL (130-400)
[2017-12-12 07:03] LABS: ALBUMIN 2.9 g/dL (3.4-5.0); ALKALINE PHOSPHATASE 98 U/L (46-116); ALT (SGPT) 18 U/L (10-68); CALC OSMOLALITY 278 mosm/kg (275-300); CALCIUM 9.2 mg/dL (8.5-10.1); CARBON DIOXIDE 24.7 mmol/L (21.0-32.0); CHLORIDE - SERUM 100 mmol/L (98-107); CREATININE - SERUM 0.9 mg/dL (0.6-1.3); POTASSIUM - SERUM 4.4 mmol/L (3.5-5.1); PROTEIN - SERUM 6.6 g/dL (6.4-8.2); SODIUM 135 mmol/L (136-145); UREA NITROGEN 24 mg/dL (7-18); eGFR NON AFRICAN AMERICAN 85 mL/min (90-120)
[2017-12-12 07:04] LABS: GLUCOSE 191 mg/dL (74-106)
[2017-12-12 07:11] LABS: APTT 27.5 SECONDS (22.8-39.4); INR 1.02 (0.85-1.17)
== END 2017-12-12 07:30 | disposition home or self-care (01) ==
LOC: D.ER 05:38
PROVIDERS: Family Medicine
DX: L76.22 Postprocedural hemorrhage of skin and subcutaneous tissue following other procedure (principal); I10 Essential (primary) hypertension; Z85.828 Personal history of other malignant neoplasm of skin

== ENCOUNTER 2019-03-16 06:00 | Day surgery (SDC) | payer MEDICARE, BC ==
[2019-03-15 11:20] LABS: BASOPHILS 0.4 % (0-2); EOSINOPHILS 2.6 % (0-7); HEMATOCRIT 32.2 % (42.0-54.0); HEMOGLOBIN 11.2 g/dL (13.5-17.5); IMMATURE GRANULOCYTES 0.5 % (0-5); LYMPHOCYTES 18.6 % (15-50); MCH 32.5 pg (26.0-34.0); MCHC 34.8 g/dL (31.0-37.0); MCV 93.3 fL (80.0-100.0); MEAN PLATELET VOLUME 10.7 fL (7.4-10.4); MONOCYTES 11.2 % (2-11); NEUTROPHILS 66.7 % (40-80); PLATELET COUNT 191 10x3/uL (130-400); RBC 3.45 10x6/uL (4.20-6.10); RDW 12.4 % (11.5-14.5); WBC 5.5 10x3/uL (4.8-10.8)
[2019-03-15 11:32] LABS: APTT 28.5 SECONDS (22.8-39.4); PROTIME 12.7 SECONDS (11.6-15.0)
[2019-03-15 11:36] LABS: CALC OSMOLALITY 285 mosm/kg (275-300); CALCIUM 9.6 mg/dL (8.5-10.1); CARBON DIOXIDE 25.6 mmol/L (21.0-32.0); CHLORIDE - SERUM 104 mmol/L (98-107); CREATININE - SERUM 0.8 mg/dL (0.6-1.3); POTASSIUM - SERUM 4.2 mmol/L (3.5-5.1); SODIUM 139 mmol/L (136-145); UREA NITROGEN 29 mg/dL (7-18); eGFR NON AFRICAN AMERICAN > 90 mL/min (90-120)
[2019-03-15 11:41] LABS: GLUCOSE 130 mg/dL (74-106)
[~2019-03-16] VITALS: Ht 180.3 cm; Wt 60.3 kg
[2019-03-16 06:38] VITALS: BP 168/61; Ht 180.3 cm; Wt 60.3 kg
--- NOTE | 2019-03-16 09:42 | NUR ---
0915 PATIENT NOTED HAVING LARGE BLUE BRUISE ON RIGHT HIP AND LEG, KARLA.
--- NOTE | 2019-03-16 12:35 | OP ---
PATIENT NAME: VERO ECHOLS MEDICAL RECORD: [id number] :34 [facility] DATE: SURGEON: GAMALIEL KENNEDY MD DATE OF OPERATION: 03/16/2019 SURGEON: Gamaliel Kennedy MD ANESTHESIA: General anesthesia by Ronaldo Foster. DIAGNOSIS: Urethral stricture. PROCEDURES: Cystoscopy and direct vision internal urethrotomy. FINDINGS: Phimosis is rather mild. On cystoscopy, he has a urethral stricture in the bulbar urethra. The prostate is not obstructive. Going into the bladder, no bladder tumors were seen. He has single ureteral orifices bilaterally. BLOOD LOSS: None. CLINICAL HISTORY: This is an 88-year-old male, who has a history of phimosis and bladder outlet obstruction. He has had radiation for prostate cancer in the past. He is using tamsulosin to improve his urine flow, but it makes him dizzy. He has stopped using the medication. He has issues with nocturia every 2-3 hours and he has urge urinary incontinence. There is no hesitancy, but there is a slow stream. He has issues with the skin cracking from phimosis. He has diabetes mellitus. His IPPS score is 25 and his quality of life score is 5. He is to have a circumcision and UroLift procedure. He was on Plavix for coronary artery stents. His ticket maker is Dr. Santiago who has authorized holding the Plavix medication. PROCEDURE IN DETAIL: The patient is ALLERGIC TO IVP DYE. He was given Ancef production operator to the OR. He was given general anesthetic, then placed into the lithotomy position and prepped and draped. On examining the penis, there seems to be just a small band of phimosis at this present time. There is some cracking of the skin, but the amount of phimosis does not warrant a circumcision. We placed the UroLift scope and encountered the bulbar urethral stricture. This was too tight and the scope could not pass through. We then switched to the direct vision internal optic urethrotome. A 12-degree lens was used. There was an annular stricture in the bulbar urethra. Using the cold knife at 12 o'clock, an incision was made through the stricture. The scope was then able to pass through. The prostatic urethra was found to be nonobstructive. No significant abnormalities were found in the bladder. A guidewire was placed into the bladder through the scope. The scope was then removed, leaving the guidewire in place. Over the guidewire, we inserted a 16-[place] tip [place] catheter. The balloon was inflated with 10 cc of sterile water and then the bag was put to bag drainage. The wire was entirely removed prior to hooking up to the bag. I will see the patient in followup in 1 week's time to remove the Toledo catheter for a voiding trial. TRANSINT:[id number] Voice Confirmation ID: [id number] DOCUMENT ID: [id number] OPERATIVE REPORT [id number] VERO ECHOLS ROBERT S MD at 1235 CC: [id number] DICTATION DATE: 03/16/1943 ADHESIVE BANDAGE MAKING OPERATOR: 03/16/19 1054 [facility] 03/16/19 [place] [address] [place] [address]
== END 2019-03-16 12:18 | disposition home or self-care (01) ==
LOC: D.OPS 06:00 → D.PAN 09:20 → D.OPS 10:45
PROVIDERS: Anesthesiology; ATTEND Urology
DX: N35.819 Other urethral stricture, male, unspecified site (principal); N47.1 Phimosis; N32.0 Bladder-neck obstruction; N40.1 Benign prostatic hyperplasia with lower urinary tract symptoms; N39.41 Urge incontinence; R35.1 Nocturia; R39.12 Poor urinary stream; Z85.46 Personal history of malignant neoplasm of prostate; Z92.3 Personal history of irradiation; E11.9 Type 2 diabetes mellitus without complications; Z95.5 Presence of coronary angioplasty implant and graft; Z79.02 Long term (current) use of antithrombotics/antiplatelets; Z01.812 Encounter for preprocedural laboratory examination

== ENCOUNTER 2020-01-25 09:55 | Inpatient (IN) | payer MEDICARE, BC ==
[~2020-01-25] VITALS: Ht 180.3 cm; Wt 59.0 kg
[~2020-01-25 09:55] MED LIST changes: -CARDIZEM CD120 MG PO; +CARDIZEM CD180 MG PO
--- NOTE | 2020-01-25 10:15 | NUR ---
LABS DRAWN INCLUDING BC X2. NASAL SWABS X 2 AND THROAT SWAB COLLECTED. ALL LABELED AT BS AND SWENT TO LAB
--- NOTE | 2020-01-25 10:28 | NUR ---
URINE SPEC COLLECTED, LABELED AT BS AND SENT TO LAB
[2020-01-25 10:31] LABS: CALC OSMOLALITY 279 mosm/kg (275-300); CALCIUM 8.9 mg/dL (8.5-10.1); CARBON DIOXIDE 24.3 mmol/L (21.0-32.0); CHLORIDE - SERUM 104 mmol/L (98-107); CREATININE - SERUM 0.7 mg/dL (0.6-1.3); GLUCOSE 132 mg/dL (74-106); POTASSIUM - SERUM 4.1 mmol/L (3.5-5.1); SODIUM 138 mmol/L (136-145); UREA NITROGEN 19 mg/dL (7-18); eGFR NON AFRICAN AMERICAN > 90 mL/min (90-120)
[2020-01-25 10:38] LABS: ALBUMIN 3.5 g/dL (3.4-5.0); ALKALINE PHOSPHATASE 93 U/L (30-120); ALT (SGPT) 15 U/L (10-68); BILIRUBIN - TOTAL 0.38 mg/dL (0.2-1.3); PROTEIN - SERUM 6.6 g/dL (6.4-8.2)
[2020-01-25 10:48] VITALS: BP 149/69
[2020-01-25 10:51] LABS: BASOPHILS 0.2 % (0-2); EOSINOPHILS 0.3 % (0-7); HEMATOCRIT 35.1 % (42.0-54.0); HEMOGLOBIN 11.5 g/dL (13.5-17.5); IMMATURE GRANULOCYTES 0.2 % (0-5); LYMPHOCYTES 5.8 % (15-50); MCH 30.3 pg (26.0-34.0); MCHC 32.8 g/dL (31.0-37.0); MCV 92.6 fL (80.0-100.0); MEAN PLATELET VOLUME 10.2 fL (7.4-10.4); MONOCYTES 6.2 % (2-11); NEUTROPHILS 87.3 % (40-80); RBC 3.79 10x6/uL (4.20-6.10); RDW 13.6 % (11.5-14.5); WBC 12.7 10x3/uL (4.8-10.8)
[2020-01-25 10:52] LABS: PLATELET COUNT 234 10x3/uL (130-400)
[2020-01-25 10:58] LABS: BACTERIA FEW /hpf (NEGATIVE); BILIRUBIN NEGATIVE (NEGATIVE); EPITHELIAL CELLS RARE /hpf (0-5); GLUCOSE NEGATIVE (NEGATIVE); HYALINE CAST RARE /lpf (NONE SEEN); KETONE NEGATIVE (NEGATIVE); NITRITE NEGATIVE (NEGATIVE); RED CELLS - URINE OCC /hpf (0-5); UROBILINOGEN NORMAL (NORMAL); WHITE CELLS - URINE OCC /hpf (NEGATIVE)
[2020-01-25 11:55] VITALS: BP 125/62
[2020-01-25 13:20] VITALS: BP 144/66
--- NOTE | 2020-01-25 14:25 | NUR ---
REPORT TO PATTI PULIDO
--- NOTE | 2020-01-25 14:40 | NUR ---
ADMITTED TO ROOM # 2217, CONDITION STABLE. NS INFUSING @ 100 ML/HR AND AZITHROMYCIN INFUSING @ 150 ML/HR
[2020-01-25 15:10] VITALS: BP 131/71; BMI 18.1
[2020-01-25 15:23] LABS: % SATURATION 15 % (15-55); IRON 61 ug/dl (35-150); TOTAL IRON BIND CAPACITY 399 ug/dl (260-445); UNSAT IRON BIND CAPACITY 338 ug/dl (150-375)
--- NOTE | 2020-01-25 15:45 | NUR ---
PATIENT IN BED WIT IV INTACT. NO COMPLAINTS OR SIGNS OF DISTRESS. ORIENTED OT ROOM AND CALL LIGHT. CALL LIGHT WITHIN REACH.
[2020-01-25 16:00] VITALS: BP 103/67
[2020-01-25 16:03] LABS: INR 1.06 (0.85-1.17); PROTIME 13.7 SECONDS (11.6-15.0)
[2020-01-25 16:05] LABS: D-DIMER-QUANTITATIVE 0.37 ug/mLFEU (0.20-0.54)
--- NOTE | 2020-01-25 18:55 | NUR ---
SPOKE WITH JABARI ABOUT TELEMETRY. STATED THAT WE NEED TO CALL JO ANN IN A FEW MINUTES AFTER SHIFT CHANGE AND THAT THERE ARE SOME AVAILABLE. NOTIFIED NIGHT NURSE. PATIENT IN BED WITH IV INTACT. NO COMPLAINTS OR SIGNS OF DISTRESS. TOLERATED REGULAR DIET. CALL LIGHT WITHINR EACH.
[2020-01-25 20:00] VITALS: BP 148/77
[2020-01-26 01:13] VITALS: BP 128/57
[2020-01-26 04:32] VITALS: BP 120/60
--- NOTE | 2020-01-26 07:30 | NUR ---
PT SITTING UP IN BED TALKING ON PHONE. RESP EVEN AND UNLABORED. PATCH TO LEFT EYE NOTED. TELEMETRY IN PLACE 80 SINUS RYTHM. IV TO RIGHT HAND NS @ 100ML/HR INFUSING VIA PUMP. SITE WITHOUT REDNESS OR EDEMA. DENIES PAIN OR FURTHER NEEDS AT THIS TIME. CL WITHIN REACH. ENCOURAGED TO CALL WITH NEEDS. CONTINUE POC
[2020-01-26 08:07] LABS: BASOPHILS 0.1 % (0-2); EOSINOPHILS 0.5 % (0-7); HEMOGLOBIN 10.7 g/dL (13.5-17.5); IMMATURE GRANULOCYTES 0.2 % (0-5); LYMPHOCYTES 11.9 % (15-50); MCH 30.5 pg (26.0-34.0); MCHC 32.4 g/dL (31.0-37.0); MEAN PLATELET VOLUME 10.2 fL (7.4-10.4); NEUTROPHILS 79.3 % (40-80); PLATELET COUNT 212 10x3/uL (130-400); RBC 3.51 10x6/uL (4.20-6.10); RDW 14.1 % (11.5-14.5); WBC 10.1 10x3/uL (4.8-10.8)
[2020-01-26 08:17] LABS: CALC OSMOLALITY 282 mosm/kg (275-300); CALCIUM 8.6 mg/dL (8.5-10.1); CARBON DIOXIDE 23.1 mmol/L (21.0-32.0); CHLORIDE - SERUM 107 mmol/L (98-107); CREATININE - SERUM 0.7 mg/dL (0.6-1.3); GLUCOSE 114 mg/dL (74-106); POTASSIUM - SERUM 3.7 mmol/L (3.5-5.1); SODIUM 141 mmol/L (136-145); eGFR NON AFRICAN AMERICAN > 90 mL/min (90-120)
[2020-01-26 08:18] LABS: UREA NITROGEN 14 mg/dL (7-18)
[2020-01-26 08:34] VITALS: BP 155/64
[2020-01-26 09:27] VITALS: Ht 180.3 cm; Wt 59.0 kg
--- NOTE | 2020-01-26 10:21 | MORECARE ---
CASE MANAGEMENT DISCHARGE SUMMARY PATIENT: VERO ECHOLS UNIT: [id number] ADM DATE: 01/25/20 AGE: 89 : 32 SEX: M ROOM/BED: D.2217 AUTHOR: AJAY FIELD PHYSICIAN: REFERRING PHYSICIAN: EILEEN LOPEZ MD DATE OF SERVICE: 01/26/20 Discharge Plan Patient Name: VERO ECHOLS Facility: [facility]:[place] : 1930 Planned Disposition: Home Anticipated Discharge Date: Discharge Date: Expected LOS: Initial Reviewer: [email or web address] Initial Review Date: 01/25/2020 Generated: 01/26/20 11:20 am Patient Name: VERO ECHOLS Page 89854 at 1021 All edits/amendments must be made on the electronic document DICTATION DATE: 01/26/20 1020 REFLEXOLOGIST: FREYA 01/26/20 1020 RPT#: [id number] DC DATE: STATUS: ADM IN [facility] [address] [place] [address] END OF REPORT
--- NOTE | 2020-01-26 10:28 | MORECARE ---
CASE MANAGEMENT DISCHARGE SUMMARY PATIENT: VERO ECHOLS UNIT: [id number] ADM DATE: 01/25/20 AGE: 89 : 32 SEX: M ROOM/BED: D.2217 AUTHOR: AJAY FIELD PHYSICIAN: REFERRING PHYSICIAN: EILEEN LOPEZ MD DATE OF SERVICE: 01/26/20 Discharge Plan Patient Name: VERO ECHOLS Facility: [facility]:[place] : 1930 Planned Disposition: Home Anticipated Discharge Date: Discharge Date: Expected LOS: Initial Reviewer: [email or web address] Initial Review Date: 01/25/2020 Generated: 01/26/20 11:28 am Comments DCP- Discharge Planning Updated by [email or web address]: Lucille Morales on 01/26/20 9:[address] Patient Name: VERO ECHOLS Admission Status: ER Accout number: [id number] Admission Date: 01-25-2020 : 1930 Admission Diagnosis: Attending: EILEEN LOPEZ Current LOS: 1 Anticipated DC Date: Planned Disposition: Home Primary Insurance: MEDICARE A & B Discharge Planning Comments: CM met with patient at bedside after explaining CM role and obtaining verbal consent. CM discussed availability / needs of home health, REHAB and medical equipment. PATIENT DENIES ANY DISCHARGE NEEDS. PATIENT IS USING A WALKER HERE BUT STATES DOES NOT WANT ONE FOR HOME. CM TO FOLLOW AND ASSIST. Wrecking Supervisor: Lucille Morales DCPIA - Discharge Planning Initial Assessment Updated by [email or web address]: Lucille Morales on 01/26/20 10:21 am * Is the patient Alert and Oriented? Yes * PCP [facility] * [facility] * Preadmission Environment Home with Family * ADLs Independent * Equipment None * Community resources currently utilized None * Additional services required to return to the preadmission environment? No * Can the patient safely return to the preadmission environment? Yes * Has this patient been hospitalized within the prior 30 days at any hospital? No Last DP export: 01/26/20 9:21 a Patient Name: VERO ECHOLS Page 68177 at 1028 All edits/amendments must be made on the electronic document DICTATION DATE: 01/26/20 1028 LECTURER OF PORTUGUESE: FREYA 01/26/20 1028 RPT#: [id number] DC DATE: STATUS: ADM IN [facility] [address] [place] [address] END OF REPORT
[2020-01-26 12:59] VITALS: BP 143/66
[2020-01-26 16:55] VITALS: BP 157/77
[2020-01-26 20:00] VITALS: BP 166/82
[2020-01-27] VITALS: BP 164/76
[2020-01-27 04:00] VITALS: BP 178/84
[2020-01-27 09:00] VITALS: BP 159/90
--- NOTE | 2020-01-27 12:06 | NUR ---
RECEIVED PT BACK FROM SPECIALS, PT IS EASILY AWAKENED WITH VERBAL STIMULI, IV IN RT HAND NS RUNNING, PLACED PT ON FREQUENT VS. BP IS 174/78, HR AT 97, O2 AT 93 RA RESP AT 16, WILL CONTINUE TO MONITOR, PT ASKED WHEN RESULTS WILL BE BACK, UNABLE TO ANSWER THIS QUESTION AND TOLD PT I WILL GET HIS NURSE FOR HIM, NO S/SX OF DISTRESS, CL IN REACH PT NURSE NOTIFIED
[2020-01-27 13:20] VITALS: BP 174/78
[2020-01-27 16:00] VITALS: BP 141/89
--- NOTE | 2020-01-27 18:45 | NUR ---
PATIENT SITTING UP IN BED WITH IV INTACT. NO COMPLAINTS OR SIGNS OF DISTRESS. BSCDS OFF AT THIS TIME. CALL LIGHT WITHIN REACH.
[2020-01-27 20:00] VITALS: BP 107/62
--- NOTE | 2020-01-27 20:00 | NUR ---
PATIENT SITTING UP IN BED WATCHING TV. NO S/S OF ACUTE DISTRESS. NO C/O AT THIS TIME. PATIENT HAS RIGHT HAND IV, NORMAL SALINE @ 100 ML/HR. IV IS PATENT WITHOUT REDNESS, SWELLING, OR TENDERNESS. PATIENT IS ON TELEMETRY: 89 SINUS RYTHM. PATIENT IS BLIND IN LEFT EYE, WEARS A PATCH OVER IT. PATIENT HAS WALKER IN ROOM. PATIENT USES URNINAL AND USES BATHROOM WITH ASSISTANCE. CALL LIGHT WITHIN REACH. WILL CONTINUE TO MONITOR.
[2020-01-28] VITALS: BP 132/58
[2020-01-28 04:00] VITALS: BP 153/72
--- NOTE | 2020-01-28 04:17 | NUR ---
I have reviewed this patient and I concur with the Shift Assessment completed by the Licensed Practical Nurse today this shift.
[2020-01-28 08:26] VITALS: BP 163/70
--- NOTE | 2020-01-28 12:26 | NUR ---
BRUISING NOTED ON BOTH ARMS. NO CHRONIC WOUND ISSUES.
[2020-01-28 12:45] VITALS: BP 166/67
--- NOTE | 2020-01-28 12:58 | NUR ---
Nutrition follow-up: Diet: Consistent CHO PO Intake 75-100% of meals Speech following. Wt: 129# Labs reviewed Will continue to provide food choices and honor food preferences. RDN following.
[2020-01-28 16:49] VITALS: BP 126/57
[2020-01-28 18:08] LABS: ACID FAST SMEAR Negative (()); AFB SPECIMEN PROCESSING Concentration (())
--- NOTE | 2020-01-28 18:54 | NUR ---
REMAINS WITHOUT NEEDS,WITHOUT CHANGE. CONT PLAN OF CARE
[2020-01-28 20:00] VITALS: BP 162/66
--- NOTE | 2020-01-28 20:00 | NUR ---
PATIENT RESTING IN BED WATCHING TV. NO S/S OF ACUTE DISTRESS. NO C/O AT THIS TIME. PATIENT HAS RIGHT WRIST IV, NORMAL SALINE @ 100 ML/HR. IV IS PATENT WITHOUT REDNESS, SWELLING, OR TENDERNESS. PATIENT HAS TELEMETRY: 82 NORMAL SINUS. PATIENT IS BLIND IN LEFT EYE AND WEARS AN EYE PATCH OVER IT. PATIENT IS UP WITH ASSIST TO BATHROOM. PATIENT USES WALKER. CALL LIGHT WITHIN REACH. WILL CONTINUE TO MONITOR.
[2020-01-29] VITALS: BP 142/66; BP 167/72
--- NOTE | 2020-01-29 03:01 | NUR ---
I have reviewed this patient and I concur with the Shift Assessment completed by the Licensed Practical Nurse today this shift.
[2020-01-29 04:00] VITALS: BP 133/64; BP 162/73
[2020-01-29 08:00] VITALS: BP 163/77
--- NOTE | 2020-01-29 08:00 | NUR ---
ASSESSMENT PER FLOW SHEET. PATIENT IS WITHOUT DISTRESS.CALL LIGHT IN REACH
[2020-01-29 09:11] VITALS: BP 176/74
[2020-01-29 13:05] VITALS: BP 107/65
[2020-01-29 16:26] VITALS: BP 154/67
--- NOTE | 2020-01-29 17:49 | NUR ---
HAS AMBULATED IN HALLS TODAY AND SET UP IN CHAIR. HE IS WITHOUT DISTRESS.MONITOR.
--- NOTE | 2020-01-29 19:05 | NUR ---
ALERT AND ORIENTED WATCHING TV. EYE PATCH TO THE LEFT EYE. PATIENT WENT THROUGH HISTORY OF EYE AND RADIATION WITH THIS NURSE. PATIENT LUNGS CLEAR TO AUSCULTATION, DIMINISHED IN THE LOWER LOBES. PATIENT USING INCENTIVE SPIROMETER WITH EDUCATION. HAS RIGHT WRIST IV THAT IS INFUSING NS @ 100. DENIES FURTHER NEEDS AT THIS TIME. CALL LIGHT CLOSE. CPOC.
[2020-01-30] VITALS: BP 128/77
--- NOTE | 2020-01-30 00:13 | NUR ---
RESTING COMFORTABLY WITH HOB RAISED. NO SIGNS OF DISTRESS NOTED. CALL LIGHT CLOSE. CPOC.
[2020-01-30 04:00] VITALS: BP 186/85
[2020-01-30 06:47] LABS: BASOPHILS 0.2 % (0-2); EOSINOPHILS 2.5 % (0-7); HEMATOCRIT 29.6 % (42.0-54.0); HEMOGLOBIN 9.8 g/dL (13.5-17.5); IMMATURE GRANULOCYTES 0.3 % (0-5); LYMPHOCYTES 14.9 % (15-50); MCHC 33.1 g/dL (31.0-37.0); MCV 90.5 fL (80.0-100.0); MEAN PLATELET VOLUME 9.7 fL (7.4-10.4); NEUTROPHILS 68.1 % (40-80); PLATELET COUNT 238 10x3/uL (130-400); RBC 3.27 10x6/uL (4.20-6.10); RDW 13.3 % (11.5-14.5)
[2020-01-30 06:58] LABS: CALC OSMOLALITY 277 mosm/kg (275-300); CALCIUM 8.5 mg/dL (8.5-10.1); CARBON DIOXIDE 24.4 mmol/L (21.0-32.0); CHLORIDE - SERUM 105 mmol/L (98-107); CREATININE - SERUM 0.7 mg/dL (0.6-1.3); GLUCOSE 158 mg/dL (74-106); POTASSIUM - SERUM 3.4 mmol/L (3.5-5.1); SODIUM 138 mmol/L (136-145); UREA NITROGEN 10 mg/dL (7-18); eGFR NON AFRICAN AMERICAN > 90 mL/min (90-120)
[2020-01-30 08:00] VITALS: BP 182/84
--- NOTE | 2020-01-30 08:00 | NUR ---
ASSESSMENT PER FLOW SHEET. PATIENT IS WITHOUT DISTRESS.HOPES FOR DC HOME TODAY. MONITOR FOR NEEDS
[2020-01-30 12:00] VITALS: BP 140/65
[2020-01-30] MEDS ORDERED: LEVOFLOXACIN500 MG PO (13:08)
--- NOTE | 2020-01-30 15:16 | NUR ---
DISCHARGE INSTRUCTIONS,STATES UNDERSTANDING. IS AND FLUTTER INSTRUCTED BY RT.IV DCD WITH CATH TIP INTACT.WAITING ON RIDE FOR NEWS ASSIGNMENT EDITOR.
--- NOTE | 2020-01-30 15:42 | NUR ---
LEFT UNIT VIA WHEELCHAIR FOR TRANSPORT HOME
--- NOTE | 2020-01-30 21:06 | MORECARE ---
CASE MANAGEMENT DISCHARGE SUMMARY PATIENT: VERO ECHOLS UNIT: [id number] ADM DATE: 01/25/20 AGE: 89 : 34 SEX: M ROOM/BED: D.2217 AUTHOR: RASHIDA,DOC PHYSICIAN: REFERRING PHYSICIAN: EILEEN LOPEZ MD DATE OF SERVICE: 01/30/20 Discharge Plan Patient Name: VERO ECHOLS Facility: [facility]:[place] : 1930 Planned Disposition: Home Anticipated Discharge Date: Discharge Date: 01/30/2020 Expected LOS: Initial Reviewer: [id number] Initial Review Date: 01/25/2020 Generated: 01/30/20 10:05 pm DCP- Discharge Planning Updated by [email or web address]: Lucille Morales on 01/26/20 9:[address] Patient Name: VERO ECHOLS Admission Status: ER Accout number: [id number] Admission Date: 01-25-2020 : 1930 Admission Diagnosis: Attending: EILEEN LOPEZ Current LOS: 1 Anticipated DC Date: Planned Disposition: Home Primary Insurance: MEDICARE A & B Discharge Planning Comments: CM met with patient at bedside after explaining CM role and obtaining verbal consent. CM discussed availability / needs of home health, REHAB and medical equipment. PATIENT DENIES ANY DISCHARGE NEEDS. PATIENT IS USING A WALKER HERE BUT STATES DOES NOT WANT ONE FOR HOME. CM TO FOLLOW AND ASSIST. Bi Developer: Lucille Morales DCPIA - Discharge Planning Initial Assessment Updated by [email or web address]: Lucille Morales on 01/26/20 10:21 am * Is the patient Alert and Oriented? Yes * PCP [facility] * Pharmacy [facility] * Preadmission Environment Home with Family * ADLs Independent * Equipment None * Community resources currently utilized None * Additional services required to return to the preadmission environment? No * Can the patient safely return to the preadmission environment? Yes * Has this patient been hospitalized within the prior 30 days at any hospital? No Coverage Notice Reviewer: [id number] - Angelina Hanks Notice Issued Date-Time: 01/30/2020 14:15 Notice Type: IM Discharge Notice Notice Delivered To: Patient Relationship to Patient: Self Corporate [employer] & Online Name: Delivery Method: HAND - Hand Delivered Anisa Days: Prior Verbal Notification: Recipient Understood Notice: Yes Recipient Signature: Yes Med Rec Note Co-signed by Attending: Coverage Notice Comment: Last DP export: 01/26/20 9:28 a Patient Name: VERO ECHOLS Page [id number] at 2106 All edits/amendments must be made on the electronic document DICTATION DATE: 01/30/202104 DRUPAL WEB DEVELOPER: FREYA 01/30/202104 RPT#: [id number] DC DATE:01/30/20 STATUS: DIS IN [facility] [address] [place] [address] END OF REPORT
[2020-01-31 11:08] LABS: FUNGUS STAIN Final report (())
== END 2020-01-30 15:42 | disposition home or self-care (01) | DRG 195 ==
LOC: D.ER 09:55 → D.MS 12:54
PROVIDERS: Family Medicine; Internal Medicine Pulmonary Disease; ADMIT Internal Medicine Nephrology; ATTEND Internal Medicine Nephrology
PROC: 0B9C8ZX Drainage of Right Upper Lung Lobe, Via Natural or Artificial Opening Endoscopic, Diagnostic (ICD-10-PCS; principal; 2020-01-27 11:00)
DX: J18.9 Pneumonia, unspecified organism (principal); D64.9 Anemia, unspecified; I10 Essential (primary) hypertension; E78.5 Hyperlipidemia, unspecified; I25.10 Atherosclerotic heart disease of native coronary artery without angina pectoris; K21.9 Gastro-esophageal reflux disease without esophagitis; N40.0 Benign prostatic hyperplasia without lower urinary tract symptoms

== ENCOUNTER → 2020-03-07 09:22 | Outpatient (CLI) | payer MEDICARE, BC ==
[2020-01-26 09:27] VITALS: BMI 18.1
[~2020-03-07 09:22] MED LIST changes: +LEVOFLOXACIN500 MG PO
== END | disposition home or self-care (01) ==
LOC: D.RAD 09:22
PROVIDERS: ATTEND Internal Medicine Pulmonary Disease
DX: Z87.01 Personal history of pneumonia (recurrent) (principal)